=== PATIENT | female | born 1945 | race Caucasian/White ===

== ENCOUNTER 2017-11-11 10:10 | Outpatient (CLI) | payer MEDICARE | END 2017-11-11 10:11 | disposition home or self-care (01) | LOC: BICMAMMO 10:10 | PROVIDERS: ATTEND Physician Assistant | DX: Z12.31 Encounter for screening mammogram for malignant neoplasm of breast (principal); Z80.3 Family history of malignant neoplasm of breast | CPT/HCPCS: 77063; 77067 ==

== ENCOUNTER 2018-02-17 11:52 | Outpatient (CLI) | payer MEDICARE ==
--- NOTE | 2018-02-17 15:07 | MRI ---
NONCONTRAST MRI CERVICAL SPINE: DATE: 02/17/18. HISTORY: Stenosis with critical nerve compression. The patient complains of neck pain that radiates down into left shoulder. The symptoms have been present for 2.5 years. COMPARISON: 01/01/16. FINDINGS: There is volume loss involving the visualized cerebral and cerebellar hemispheres. Cervicomedullary junction demonstrates a normal MRI appearance. There are degenerative changes seen at the articulation of the odontoid with anterior arch of C1 unchanged from prior exam. Mild end plate degenerative changes are seen at the C5-6 and C6-7 levels, but there is otherwise norm al signal intensity in the bone marrow. C2-3 level: There is no disk bulge or disk herniation. Central spinal canal and neural foramina are patent. C3-4 level: There are facet degenerative changes on the left resulting in mild to moderate left-side d neural foraminal narrowing. The central spinal canal and right neural foramen are patent. C4-5 level: There is a broad-based disk-osteophyte complex with uncinate process hypertrophy. There is prominent left-sided facet hypertrophic changes noted. There is mild narrowing of the central sp inal canal with effacement of the ventral subarachnoid space. Right neural foramen is patent, but th ere is mild left-sided neural foraminal narrowing. There is trace anterolisthesis of C4 on C5 also p resent on the prior exam. C5-6 level: There is loss of intervertebral disk height. There is a broad-based disk-osteophyte com plex again present similar to the prior exam. This results in mild narrowing of the central spinal c anal with slight flattening of the anterior aspect of the spinal cord, but there is normal signal int ensity in the spinal cord. There is mild right and moderate to severe left-sided neural foraminal na rrowing. C6-7 level: There is loss of intervertebral disk height. There is a mild disk-osteophyte complex an d facet hypertrophic changes. There is minimal effacement of the ventral subarachnoid space. There is minimal bilateral neural foramen present. C7-T1 level: There is no disk bulge or disk herniation. Central spinal canal and neural foramina ar e patent. IMPRESSION: Overall stable degenerative changes involving the cervical spine with findings greatest at C4-5 and C 5-6 levels. POS: [facility]
--- NOTE | 2018-02-17 15:19 | MRI ---
LEFT WRIST MRI WITHOUT IV CONTRAST: HISTORY: A 72-year-old female with a history of TFC tear and ECUC tear/tendinitis. Swelling for 6 weeks and p ain without acute injury. FINDINGS: Multiplanar, multisequence MRI examination of the left wrist is performed. There is some indistincti on of the central triangular fibrocartilage disk with some fluid within the distal radial ulnar joint , evidence for a central perforation. There is some fluid density noted medial to the extensor carpi ulnaris tendon sheath. The sub sheath is somewhat indistinct but does not appear overtly torn. No evidence for abnormal increased signal within the tendon itself. Minimal fluid density between the s ub sheath and the overlying extensor retinaculum. Arthrosis changes of the triscaphe joint with some minimal abnormal marrow signal within the scaphoid with some subchondral cystic changes as well as a small dorsally located synovial cyst in close proximity. Several other small subchondral cystic elkin nges are noted within the carpal bones. IMPRESSION: Evidence for a small central perforation of the triangular fibrocartilage complex with some fluid in the distal radial ulnar joint. Some fluid extending medial to the extensor carpi ulnaris sub sheath between the sub sheath and the extensor retinaculum probably related to some tenosynovitis. No evide nce for overt ECU tendon tear or significant focal tendinopathy or dislocation of the ECU tendon. Ar throsis changes of the wrist including the trapezium, 1st metacarpal joint, and the triscaphe region. POS: [facility]
== END 2018-02-17 11:53 | disposition home or self-care (01) ==
LOC: SCSMRI 11:52
PROVIDERS: ATTEND Orthopaedic Surgery Hand Surgery
DX: S63.592A Other specified sprain of left wrist, initial encounter (principal); M48.02 Spinal stenosis, cervical region; M19.032 Primary osteoarthritis, left wrist; M19.042 Primary osteoarthritis, left hand; M47.892 Other spondylosis, cervical region
CPT/HCPCS: 72141

== ENCOUNTER 2018-02-24 08:38 | Outpatient (CLI) | payer MEDICARE ==
--- NOTE | 2018-02-24 10:06 | RAD ---
CHEST 2 VIEWS: HISTORY: Preop. COMPARISON: . FINDINGS: Cardiac silhouette and pulmonary vasculature are unremarkable. Mediastinum midline. No confluent ai rspace consolidation, pneumothorax, or pleural fluid. IMPRESSION: No active cardiopulmonary abnormalities are demonstrated. POS: [facility]
[2018-02-24 10:14] LABS: #Basophils 0.1 thou/uL (0.0-0.2); #Eosinphils 0.2 thou/uL (0.0-0.7); #Lymphocytes 2.2 thou/uL (1.20-3.40); #Monocytes 0.7 thou/uL (0.11-0.59); %Basophils 1.2 % (0.0-1.0); %Eosinophils 2.8 % (0.0-10.0); %Lymphocytes 35.7 % (21.0-51.0); %Neutrophils 49.3 % (42.0-75.0); Mean Corpuscular HGB CONC 35.5 g/dL (32.0-36.0); Mean Corpuscular Hemoglobin 32.3 pg (27.0-31.0); Mean Platelet Volume 7.7 fL (7.4-10.4); Platelet Count 231 thou/uL (130-400); RBC Distribution Width 12.3 % (11.5-14.5); Red Blood Cell (RBC) Count 4.34 mill/uL (4.20-5.40); White Blood Cell (WBC) Count 6.1 thou/uL (4.8-10.8)
[2018-02-24 10:31] LABS: Anion Gap 13 mmol/L (10-20); BUN (Urea Nitrogen) 26 mg/dL (9.8-20.1); Calc. Creatinine Clearance 0 mL/min (70-130); Calcium 10.3 mg/dL (7.8-10.44); Carbon Dioxide 25 mmol/L (23-31); Chloride 105 mmol/L (98-107); Estimated GFR-MDRD 57; Glucose 116 mg/dL (80-115); Potassium 3.6 mmol/L (3.5-5.1); Sodium 139 mmol/L (136-145)
== END 2018-02-24 08:39 | disposition home or self-care (01) ==
LOC: LABBT 08:38
PROVIDERS: ATTEND Orthopaedic Surgery Hand Surgery
DX: Z01.818 Encounter for other preprocedural examination (principal); M19.031 Primary osteoarthritis, right wrist
CPT/HCPCS: 71046; 80048; 85025; 93005; 93010

== ENCOUNTER 2018-02-28 09:38 | Observation (INO) | payer MEDICARE ==
[2018-02-28] MEDS ORDERED: Midazolam HCl 2 mg/2 ml Vial ONE ×2 (10:30→12:35)
[2018-02-28] MEDS ORDERED: Fentanyl 100 MCG/2 ML VIAL ONE ×2 (10:30→12:35)
[2018-02-28] MEDS ORDERED: CEFAZOLIN/Water 2 GM/20 ML SYRINGE ONE (10:41)
[2018-02-28] MEDS ORDERED: Promethazine HCl 25 MG/ML VIAL IM PRN ×2 (11:33→17:08)
[2018-02-28] MEDS ORDERED: Ketorolac Tromethamine 30 MG/ML VIAL IVP PRN (11:33)
[2018-02-28] MEDS ORDERED: Ondansetron HCl/PF 4 MG/2 ML Vial IVP PRN (11:33)
[2018-02-28] MEDS ORDERED: traMADol HCl 50 MG TAB PO PRN (11:33)
[2018-02-28] MEDS ORDERED: Zolpidem Tartrate 5 MG TAB PO PRN (11:33)
[2018-02-28] MEDS ORDERED: Ropivacaine HCl/PF 1,100 MG in Sodium Chloride 0.9% 440 ML NERVE BLCK SCH (11:33)
[2018-02-28] MEDS ORDERED: Bupivacaine PF 0.5% 30 ML VIAL ONE (12:28)
[2018-02-28] MEDS ORDERED: Clindamycin/D5W 600 mg/50 ml Premix Bag ONE (12:28)
[2018-02-28] MEDS ORDERED: Thrombin 5000 UNITS/5 ML VIAL ONE (12:29)
[2018-02-28] MEDS ORDERED: Bacitracin Zinc Ointment 30 gm TUBE ONE (12:29)
[2018-02-28] MEDS ORDERED: Sodium Chloride 0.9% 10 ML ONE (12:29)
[2018-02-28] MEDS ORDERED: Morphine 10 MG/ML VIAL ONE (12:42)
[2018-02-28] MEDS ORDERED: Bupivacaine 0.25% HCL 30 ML VIAL ONE (13:03)
[2018-02-28] MEDS ORDERED: Bupivacaine HCl 0.5%/Epinephrine 1:200,000/PF 30 ml Vial ONE (13:03)
[2018-02-28] MEDS ORDERED: Lidocaine 1% PF 5 ML VIAL ONE (13:15)
[2018-02-28] MEDS ORDERED: Dexamethasone 20 MG/5 ML VIAL ONE (13:15)
[2018-02-28] MEDS ORDERED: PROPOFOL 200 MG/20 ML VIAL ONE (13:15)
[2018-02-28] MEDS ORDERED: Ketorolac Tromethamine 30 MG/ML VIAL ONE (13:15)
[2018-02-28] MEDS ORDERED: Ondansetron HCl/PF 4 MG/2 ML Vial ONE (13:15)
[2018-02-28] MEDS ORDERED: Morphine 4 MG/ML VIAL ONE ×2 (17:06→17:21)
[2018-02-28] MEDS ORDERED: HYDROcodone/Acetaminophen 5/325 mg Tablet PO PRN (17:08)
[2018-02-28] MEDS ORDERED: TETANUS AND DIPHTHERIA TOX/PF 0.5 ML DISP.SYRIN IM SCH (17:15)
[2018-02-28] MEDS ORDERED: PHARMACY TO DOSE ANTIBIOTICS FS PRN (17:15)
[2018-02-28] MEDS: Ketorolac Tromethamine 30 MG/ML VIAL IVP SCH (18:01)
[2018-02-28 18:24] VITALS: BMI 33.1
[2018-02-28] MEDS: Aspirin 81 mg Enteric Coated Tablet PO SCH (21:38)
--- NOTE | 2018-02-28 22:47 | RAD ---
RADIOGRAPH RIGHT WRIST 5 VIEWS: 02/28/18 Attention [place] in billing: This is a 5 view study. HISTORY: 72 year old female with chronic wrist pain. COMPARISON: No prior wrist imaging studies are available. FINDINGS: A total of five fluoroscopic spot images obtained with C-arm in the OR. Initial image demonstrates wi dening of the scapholunate interval suggestive of tear of scapholunate ligament. Subsequent image dem onstrates tissue retractors from proximal approach, exposing the carpal bones, and large air density in place of the now absent scaphoid bone. Next images demonstrate tissue retractors from more distal approach at the wrist, and interval placement of a K-wire, and four partially threaded screws which o verlie multiple carpal bones, including capitate, hamate, scaphoid, and triquetrum. In the final imag e, the tissue retractors and K-wire have been removed, but the screws remain. IMPRESSION: 1. Evidence for scapholunate ligament tear on the first image. 2. Ongoing scaphoidectomy. 3. Ongoing arthrodesis of multiple carpal bones. POS: [facility]
[2018-03-01] MEDS: Ketorolac Tromethamine 30 MG/ML VIAL IVP SCH ×2 (00:21→05:26)
[2018-03-01] MEDS: traMADol HCl 50 MG TAB PO PRN ×2 (00:23→08:25)
[2018-03-01] MEDS ORDERED: Vancomycin HCl 750 MG in Sodium Chloride 0.9% 250 ML 250 ML IVPB SCH (01:00)
[2018-03-01] MEDS: Aspirin 81 mg Enteric Coated Tablet PO SCH (08:23)
[2018-03-01] MEDS ORDERED: Vancomycin HCl 1 GM in Premix Bag 1 BAG IVPB SCH (09:00)
[2018-03-01 09:05] VITALS: BP 114/71; TEMP 98.7
--- NOTE | 2018-03-02 08:35 | OP ---
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 FINDINGS: 1. Nearly 70% capitolunate erosion with very hard inebriated bone here and at the radioscaphoid joint . 2. There was a complete scapholunate ligament tear with dorsal intercalated instability. PROCEDURES PERFORMED: 1. Excision of scaphoid. 2. Four-corner arthrodesis with major bone graft using some scaphoid bone and 15 mL of cancellous ch ips. 3. C-arm supervision, 2 hours. SPECIMEN REMOVED: Scaphoid. TOURNIQUET TIME: 127 minutes. Findings as listed above. INDICATIONS: ST-T osteoarthritis with pain and a very wide 1-cm scapholunate interval and dorsal int ercalated instability with SLAC wrist advanced changes. DESCRIPTION OF PROCEDURE: After successful general endotracheal anesthesia, the limb was prepped and draped. We then outlined a zigzag incision after the timeout was done. The tourniquet was inflated to 250 mmHg pressure after exsanguination of limb. Carried incision through skin and subcutaneous tissue identified the superficial ulna and superficial radial nerve branches protected them now throughout the procedure. We then opened the retinaculum i n a zigzag pattern, and through the floor of the fourth dorsal compartment, did a posterior interosse ous nerve neurectomy. We then made a rhomboid shaped capsular flap leaving 3 mm of rim over the radi us for later closure and exposed the entire carpus. It was here that we found the findings of the ra dioscaphoid and capitolunate joint erosion as described above. We then identified the completely torn scapholunate ligament and entered it obliquely and going radia lly with a 0.062 threaded K-wire. We used this as joystick to help gently remove the scaphoid. Once this was done, the scaphoid was and we only had a small amount of good bone. We then began so me systematic curettage and rongeur as well as small amount of burring to achieve a soft cancellous b one surface at the capitate surface of the lunate, lunate surface of the capitate, and the entire fou r corner region. Once this was done, we then placed a small amount of the scaphoid bone into the cap itolunate and the mid carpal joint, we then placed the remaining portion in the other joints to inclu de the lunate or triquetral and the captiohamate. We then pinned him in situ, and next to this, we t hen placed in each joint cannulated the 3-0 Synthes screws. There was excellent apposition, compress ion of the bone graft mass. No gross motion seen between any bones and then we released the tourniqu et. It must be noted that a separate more ulnar incision was made to place the capitohamate and triq uetrum to lunate screw. Tourniquet was deflated. Hemostasis obtained. The extensor carpi ulnaris t o retinaculum was closed with an interrupted 3-0 Monocryl undyed. #1 Ethibond was used in a figure-o f-eight pattern and interrupted to close the capsular flap. The retinacular repair with 2-0 Vicryl u ndyed. This was in a [id number] interrupted pattern. We then closed the subcutaneous tissue wi th a running 4-0 Monocryl and then the skin approximated with interrupted 4-0 nylon in the mattress p attern. The patient left the operating room without evidence of anesthetic or operative complication . Splint was applied. It must be noted that the patient did have a block given preop, which had exc ellent but no at the end of procedure.
== END 2018-03-01 09:20 | disposition home or self-care (01) ==
LOC: SDC 09:38 → SURG B 18:15
PROVIDERS: ADMIT Orthopaedic Surgery Hand Surgery; ATTEND Orthopaedic Surgery Hand Surgery
PROC: 0RGN07Z Fusion of Right Wrist Joint with Autologous Tissue Substitute, Open Approach (ICD-10-PCS; principal; 2018-02-28)
DX: M19.031 Primary osteoarthritis, right wrist (principal); M19.032 Primary osteoarthritis, left wrist; M18.0 Bilateral primary osteoarthritis of first carpometacarpal joints; S63.511A Sprain of carpal joint of right wrist, initial encounter; M85.831 Other specified disorders of bone density and structure, right forearm; I10 Essential (primary) hypertension; J45.909 Unspecified asthma, uncomplicated; E78.00 Pure hypercholesterolemia, unspecified; K21.9 Gastro-esophageal reflux disease without esophagitis; G47.00 Insomnia, unspecified; M48.02 Spinal stenosis, cervical region; M19.019 Primary osteoarthritis, unspecified shoulder; Z88.0 Allergy status to penicillin; Z88.5 Allergy status to narcotic agent; Z88.8 Allergy status to other drugs, medicaments and biological substances; Z79.899 Other long term (current) drug therapy
CPT/HCPCS: 25825; 73110; 76001; 96374 ×2; 96375; 96376; C1713; G0378; A4216; J0670; J1100; J1885; J2001; J2250; J2270; J2405; J2704; J3010; J3370; J3490; J7050; S0020

== ENCOUNTER 2018-05-25 11:57 | Outpatient (CLI) | payer MEDICARE | END 2018-05-25 11:58 | disposition home or self-care (01) | LOC: BICMRI 11:57 | PROVIDERS: ATTEND Neurological Surgery | DX: M54.16 Radiculopathy, lumbar region (principal); M51.24 Other intervertebral disc displacement, thoracic region | CPT/HCPCS: 72148 ==

== ENCOUNTER 2018-06-13 10:32 | Outpatient (CLI) | payer OTHER ==
--- NOTE | 2018-06-13 13:33 | MRI ---
MRI LUMBAR SPINE WITHOUT CONTRAST: History: Lumbar radiculopathy. Comparison: 05-25-18 Technique: MRI of the lumbar spine is performed without intravenous gadolinium administration. Multis equential, multiplanar imaging was performed. FINDINGS: Stable mild heterogenicity of marrow signal intensity of the lumbar vertebrae. No fracture. No signif icant signal intensity to suggest edema or ligamentous injury. Symmetric signal intensity of the psoas muscles. Appropriate signal intensity of the visualizes solid organs. Conus medullaris terminates at the inferior aspect of L1. T11-12: Stable left paracentral disc extrusion. This extrusion measures 9 mm mediolateral x 6 mm ante roposterior x 9 mm craniocaudal (previously measuring 8 x 11 x 8 mm). There is mass effect upon the l eft thecal sac/left radicular zone. Stable central canal stenosis. Moderate right and left foraminal narrowing. T12-L1: Adequate disc hydration. No significant central canal stenosis. Foramina are patent. L1-2: Adequate disc hydration. No significant central canal stenosis. Foramina are patent. L2-3: Adequate disc hydration. No significant central canal stenosis. Foramina are patent. L3-4: Small amount of fluid in both facet joints. Mild facet hypertrophy. No significant posterior di sc abnormality. No significant canal stenosis. Neural foramina are patent. L4-5: Stable moderate loss of disc height loss. No significant posterior disc abnormality. No signifi cant central canal stenosis. Right neural foramen is mildly narrowed. Mild left foraminal narrowing. There is fluid in both facet joints. L5-S1: No significant central canal stenosis. Neural foramina are patent. There is bilateral facet hy pertrophy with fluid in both facet joints. IMPRESSION: 1. Stable degenerative change of the lumbar spine. 2. Stable disc extrusion at T12-L1. POS: [facility]
== END 2018-06-13 10:33 | disposition home or self-care (01) ==
LOC: TBSIIMAG 10:32
PROVIDERS: ATTEND Physician Assistant
DX: M47.26 Other spondylosis with radiculopathy, lumbar region (principal); M51.15 Intervertebral disc disorders with radiculopathy, thoracolumbar region
CPT/HCPCS: 72148

== ENCOUNTER 2018-06-30 08:44 | Outpatient (CLI) | payer MEDICARE ==
--- NOTE | 2018-06-30 10:58 | MRI ---
MRI THORACIC SPINE WIHTOUT CONTRAST: HISTORY: Chronic upper back pain x many years. COMPARISON: 01/01/2016. TECHNIQUE: MRI thoracic spine is performed without contrast. Multisequential, multiplanar imaging is performed. FINDINGS: Stable vertebral body height throughout the thoracic spine with mild loss of vertebral body height in the mid thoracic spine, chronic. No STIR hyperintensity to suggest edema. There is stable heterogen eous signal intensity of the thoracic vertebrae with a stable T1 hypointense, T2 hypointense lesion a t T7 with subtle STIR hyperintensity. This lesion is unchanged for over 2 years. Visualized mediastinum, lung parenchyma, and solid organs are unremarkable. Conus medullaris termina zainab at the mid aspect of T12. The thoracic cord has a normal size and signal intensity. No hyperint ensity or cord expansion. T1-T2 through T2-T3: No significant central canal stenosis. Foramen are patent. T3-T4: Right paracentral disk bulge that deforms the thecal sac. Mild stenosis. T4-T5: Left and right paracentral disk bulge and deformity of the thecal sac. Mild central canal st enosis. T5-T6 AND T6-T7: Mild central canal stenosis due to left and right paracentral disk bulges. T7-T8: Moderate central canal stenosis and deformity of the thecal sac secondary to a broad-based di sk bulge. The ventral cord is also deformed. T8-T9: Mild central canal stenosis through a central disk bulge. T9-T10: Unremarkable. T10-T11: Severe central canal stenosis secondary to an extradural focus causing mass effect upon the left aspect of the thecal sac measuring 1.1 x 0.9 cm. Sequestered disk fragment is favored. There is no corresponding lesion on the most recent MRI. T11-T12: No significant central canal stenosis or foraminal narrowing. IMPRESSION: Abnormal extradural lesion in the anterior left aspect of the central spinal canal at T10-T11 likely representing a sequestered disk fragment. However, complete characterization cannot be performed due to lack of contrast. Postcontrast imaging is recommended to exclude other etiologies such as mening ioma. CODE T POS: [facility]
== END 2018-06-30 08:45 | disposition home or self-care (01) ==
LOC: SCSMRI 08:44
PROVIDERS: ATTEND Neurological Surgery
DX: M54.6 Pain in thoracic spine (principal); R93.7 Abnormal findings on diagnostic imaging of other parts of musculoskeletal system
CPT/HCPCS: 72146

== ENCOUNTER 2018-07-12 07:18 | Day surgery (SDC) | payer MEDICARE ==
[2018-07-11 11:51] VITALS: BMI 34.7
--- NOTE | 2018-07-11 18:21 | HP ---
HISTORY OF PRESENT ILLNESS: Ms. Cho is a 73-year-old woman known to us for several evaluation s with her for various issues. She reports today with her own problem being severe thoracic back pain in the middle to lower thoracic spine. She has had multiple interventions on therapy, medi cations, and several injections with Dr. Mills. All these do help. The pain always returned, it has gotten to a point now where efficacy diminished and she is in quite a bit of pain on a daily bas is. She move forward with surgery. She does have an MRI from [facility] that reveals large disk her niation at T10 causing severe central canal stenosis, though I explain her symptoms well. PAST MEDICAL HISTORY: Significant for hypertension, asthma, seasonal allergies, hypercholesterolemia . CURRENT MEDICATIONS: Omeprazole, atenolol, triamterene, hydrochlorothiazide, montelukast, Cymbalta, Premarin, pravastatin, testosterone, ProAir inhaler. ALLERGIES: ALBUTEROL unit depressions, PENICILLIN, DEMEROL, CODEINE with a wide variety of adverse e ffect. PAST SURGICAL HISTORY: Hysterectomy, neuroma resection in both feet, cholecystectomy, heart catheter ization, bilateral cataract surgeries, left shoulder operation, and wrist fusion. PHYSICAL EXAMINATION: The patient is alert and oriented x3. Gait is severely antalgic and slow. ASSESSMENT: Thoracic stenosis. PLAN: Dr. Baker met with the patient, reviewed imaging and advocated for a left T10 diskectomy. He explained to the patient the risks, benefits, and alternatives to the procedure. The patient express ed understanding and ready for surgery as discussed. I believe the patient is mentally competent and capable of making medical decisions for herself. We will move forward with surgery as planned.
[2018-07-12] MEDS ORDERED: Bupivacaine HCl 0.5%/Epinephrine 1:200,000/PF 30 ml Vial ONE (08:01)
[2018-07-12] MEDS ORDERED: Thrombin 5000 UNITS/5 ML VIAL ONE (08:01)
[2018-07-12] MEDS ORDERED: Levofloxacin 500 mg/D5W 100 ml Premix Bag ONE (08:20)
[2018-07-12] MEDS ORDERED: Clindamycin/D5W 900 mg/50 ml Premix Bag ONE (08:20)
[2018-07-12] MEDS ORDERED: Fentanyl 100 MCG/2 ML VIAL ONE (08:42)
[2018-07-12 08:54] LABS: Anion Gap 12 mmol/L (10-20); BUN (Urea Nitrogen) 23 mg/dL (9.8-20.1); Calc. Creatinine Clearance 73 mL/min (70-130); Calcium 9.5 mg/dL (7.8-10.44); Carbon Dioxide 26 mmol/L (23-31); Chloride 106 mmol/L (98-107); Estimated GFR-MDRD 57; Glucose 82 mg/dL (83-110); Potassium 5.7 mmol/L (3.5-5.1); Sodium 138 mmol/L (136-145)
--- NOTE | 2018-07-12 11:43 | OP ---
SURGEON: Go Baker M.D. [employer] F[employer]IES: Deni Carlos PA-C INDICATION: Pain. PREOPERATIVE DIAGNOSIS: Thoracic herniated disk with associated spinal canal stenosis and radiculopathy. PROCEDURE: Left T10 hemilaminectomy, medial facetectomy, and diskectomy. ANESTHESIA: General. TECHNIQUE: The patient was brought to the operating room and placed under general anesthesia. She was flipped from a supine to prone position on the operating room table. A linear incision was planned over the T10 segment. This was counted from beneath upward. The patient was noted to have 11 ribs as confirmed on MRI, x-ray, and CT. High-speed cutting drill bit as well as 1 and 2 mm Kerrisons were used to perform a laminectomy along T10 on the left side. Laminectomy extended into the facet joint. Disk material was identified in the foramen and an annulotomy was performed in the disk space to remove additional disk material. The wound was irrigated. Hemostasis was maintained throughout. The wound was then closed in anatomic layers and a pressure dressing was applied. There were no known procedural complications. [facility]
[2018-07-12] MEDS ORDERED: PROPOFOL 200 MG/20 ML VIAL ONE (17:32)
[2018-07-12] MEDS ORDERED: Lidocaine 1% PF 5 ML VIAL ONE ×2 (17:32)
[2018-07-12] MEDS ORDERED: Metoclopramide HCl 10 MG/2 ML VIAL ONE (17:32)
[2018-07-12] MEDS ORDERED: Ondansetron PF 4 MG/2 ML Vial ONE (17:32)
[2018-07-12] MEDS ORDERED: Glycopyrrolate 0.2 MG/ML 5 ML SYRINGE ONE (17:32)
[2018-07-12] MEDS ORDERED: Ketorolac Tromethamine 30 MG/ML VIAL ONE (17:32)
== END 2018-07-12 13:05 | disposition home or self-care (01) ==
LOC: SDC 07:18
PROVIDERS: ATTEND Neurological Surgery
PROC: 0RB90ZZ Excision of Thoracic Vertebral Disc, Open Approach (ICD-10-PCS; principal; 2018-07-12)
PROC: 01N80ZZ Release Thoracic Nerve, Open Approach (ICD-10-PCS; 2018-07-12)
DX: M48.04 Spinal stenosis, thoracic region (principal); M51.14 Intervertebral disc disorders with radiculopathy, thoracic region; I10 Essential (primary) hypertension; E78.00 Pure hypercholesterolemia, unspecified; J45.909 Unspecified asthma, uncomplicated; Z79.899 Other long term (current) drug therapy; Z88.0 Allergy status to penicillin; Z88.5 Allergy status to narcotic agent; Z88.8 Allergy status to other drugs, medicaments and biological substances
CPT/HCPCS: 76001; 80048; J0131; J0670; J1885; J1956; J2001; J2405; J2704; J2765; J3010; J3490

== ENCOUNTER 2018-07-27 09:41 | Outpatient (CLI) | payer MEDICARE ==
--- NOTE | 2018-07-27 10:29 | CT ---
CT LUMBAR SPINE: Technique: Multiple axial tomograms were obtained through the lumbar spine with multiplanar reconstru ction. Indication: Low back pain. Lumbar radiculopathy with radiation to the left leg. Comparison: MRI lumbar spine 06-13-18 FINDINGS: The lumbar vertebrae maintain height and alignment. Degenerative disc changes at L4-5 with vacuum phe nomenon and disc space loss. Mild degenerative osteophytes from the lumbar vertebrae. There is a broad based disc protrusion at T11 and T12 which was noted on the recent MRI. T12-L1: No significant disc bulge or abnormality. L1-2: No significant disc bulge or central canal stenosis. L2-3: Mild disc bulge flattens the thecal sac. The disc bulge shows asymmetric extension to the left with disc osteophyte complex projecting to the left with facet hypertrophy. Mild to moderate central canal stenosis. L3-4: Mild diffuse disc bulge flattens the thecal sac. Facet and ligamentous hypertrophy is more prom inent. Moderate to severe central canal stenosis. L4-5: Degenerative disc changes with vacuum phenomenon in the disc space. Disc bulge flattens the the will sac. Facet hypertrophy. Moderate central canal stenosis. L5-S1: Broad based disc bulge. Prominent facet hypertrophy. Moderate central canal stenosis. Bilatera l foraminal encroachment due to diffuse disc bulge and facet hypertrophy. IMPRESSION: Multilevel degenerative disc change as described above with central canal stenosis as described. POS: [facility]
== END 2018-07-27 09:42 | disposition home or self-care (01) ==
LOC: TBSIIMAG 09:41
PROVIDERS: ATTEND Neurological Surgery
DX: M51.16 Intervertebral disc disorders with radiculopathy, lumbar region (principal); M48.061 Spinal stenosis, lumbar region without neurogenic claudication
CPT/HCPCS: 72131

== ENCOUNTER 2018-09-20 09:06 | Outpatient (CLI) | payer MEDICARE ==
--- NOTE | 2018-09-20 12:43 | CT ---
CT OF THE THORACIC SPINE: Date: 09/20/18 COMPARISON: 03/25/16. HISTORY: Thoracic spine surgery in June 2018, pain between shoulder blades. FINDINGS: Axial CT imaging at 3 mm intervals through the thoracic spine with coronal and sagittal reformatted i maging. FINDINGS: Imaged lung parenchyma grossly unremarkable. There is prominent degenerative change at C6-7 and C7-T1, incompletely assessed on this exam. Within the thoracic spine, there is no anterolisthesis or retrolisthesis noted. There is mild multilevel anterior wedging of T8, T9, and T10, similar when compared to prior imaging. There is no acute osseous abnormality identified on this examination. Evaluation for central canal and/or neural foraminal stenosis is limited on routine CT exam. On the b asis of an osseous abnormality, there is no significant central canal stenosis within the thoracic sp ine. There is disc space narrowing with anterior osteophyte formation from T5-6 through T11-12. There are vacuum discs noted anteriorly at T7-8, T9-10, and T11-12. No worrisome lytic or blastic bone lesion is noted. Coronal imaging demonstrates a mild degree of levoscoliosis of the upper thoracic spine. IMPRESSION: Multilevel thoracic spine degenerative change as described above. No acute fracture or evidence of di slocation is seen. If there are radicular symptoms, MRI is suggested. POS: [facility]
== END 2018-09-20 09:07 | disposition home or self-care (01) ==
LOC: TBSIIMAG 09:06
PROVIDERS: ATTEND Neurological Surgery
DX: M54.6 Pain in thoracic spine (principal); M47.814 Spondylosis without myelopathy or radiculopathy, thoracic region
CPT/HCPCS: 72128

== ENCOUNTER 2018-10-11 10:23 | Outpatient (CLI) | payer MEDICARE ==
--- NOTE | 2018-10-11 11:07 | RAD ---
CHEST TWO VIEWS: HISTORY: Dyspnea. COMPARISON: 02/24/2018 FINDINGS: The lungs remain clear. No evidence of vascular congestion. Heart size is upper normal and stable. Degenerative spine changes appear stable. A left shoulder prosthesis has been placed since the prio r exam. IMPRESSION: No acute finding or significant interval change. POS: [facility]
== END 2018-10-11 10:24 | disposition home or self-care (01) ==
LOC: RAD 10:23
PROVIDERS: ATTEND Internal Medicine
DX: R06.00 Dyspnea, unspecified (principal)
CPT/HCPCS: 71046

== ENCOUNTER 2018-10-13 05:49 | Day surgery (SDC) | payer MEDICARE ==
[2018-10-12 13:54] VITALS: BMI 34.7
--- NOTE | 2018-10-12 14:02 | HP ---
HISTORY OF PRESENT ILLNESS: Ms. Cho is a 73-year-old woman known to us for previous decompression of both the lumbar and thoracic spines, who presents now with significant bilateral interscapular pain. She has a new MRI revealing bilateral foraminal stenosis at C3-C4 and C4-C5 that would likely fit this very well. She has exhausted what she feels to be her conservative treatment methods including injection therapy and hopes to move forward with surgery at this time. PAST MEDICAL HISTORY: Hypertension, asthma, seasonal allergies, and hypercholesterolemia. CURRENT MEDICATIONS: 1. Omeprazole. 2. Atenolol. 3. Triamterene. 4. Hydrochlorothiazide. 5. Montelukast. 6. Cymbalta. 7. Premarin. 8. Pravastatin. 9. Testosterone. 10. ProAir. ALLERGIES: TO ALBUTEROL, PENICILLIN, DEMEROL, AND CODEINE. PAST SURGICAL HISTORY: Hysterectomy; neuroma in both feet, resected; cholecystectomy; heart catheterization; cataract surgeries, bilateral; and left shoulder operation; wrist fusion. PHYSICAL EXAMINATION: GENERAL: The patient is alert and oriented x3. MUSCULOSKELETAL: Gait is antalgic and slowed. Cervical range of motion is limited in the lateral rotation. ASSESSMENT: Cervical radiculopathy. PLAN: Dr. Baker met with the patient, reviewed imaging, advocated for C3-C5 anterior cervical diskectomy and fusion. He explained to the patient the risks, benefits, and alternatives to the procedure. The patient expressed understanding and elected to move forward with surgery as discussed. I do believe the patient is medically competent and capable of making medical decisions for herself. We will move forward with surgery as planned. Job ID: [id number]
[2018-10-13 07:05] LABS: Anion Gap 15 mmol/L (10-20); BUN (Urea Nitrogen) 25 mg/dL (9.8-20.1); Calc. Creatinine Clearance 82 mL/min (70-130); Calcium 9.6 mg/dL (7.8-10.44); Carbon Dioxide 18 mmol/L (23-31); Chloride 106 mmol/L (98-107); Estimated GFR-MDRD 65; Glucose 93 mg/dL (83-110); Potassium 4.3 mmol/L (3.5-5.1); Sodium 135 mmol/L (136-145)
[2018-10-13] MEDS ORDERED: Levofloxacin 500 mg/D5W 100 ml Premix Bag ONE (07:23)
[2018-10-13] MEDS ORDERED: Clindamycin/D5W 900 mg/50 ml Premix Bag ONE (07:24)
[2018-10-13] MEDS ORDERED: Fentanyl 250 MCG/5 ML VIAL ONE (08:13)
[2018-10-13] MEDS ORDERED: Thrombin 5000 UNITS/5 ML VIAL ONE (08:14)
[2018-10-13] MEDS ORDERED: Sodium Chloride 0.9% 10 ML ONE (08:14)
[2018-10-13] MEDS ORDERED: Fentanyl 100 MCG/2 ML VIAL ONE ×4 (10:06→11:23)
--- NOTE | 2018-10-13 10:32 | OP ---
DATE OF PROCEDURE: 10/13/2018 LEVEL VIAL MARKER: Deni Carlos PA-C INDICATION: Pain. DIAGNOSIS: Cervical radiculopathy. PROCEDURES PERFORMED: Anterior cervical diskectomy and fusion, C3 through C5. ANESTHESIA: General. DESCRIPTION OF PROCEDURE: The patient was brought into the operating room and placed under general anesthesia. She was placed on table in supine position. A transverse incision was planned over the lateral aspect of the neck on the right. After prepping and draping and after preoperative pause, the incision was created. The underlying platysma muscle was identified and incised. A blunt tissue plane anterior to the sternocleidomastoid muscle was used to gain access to the prevertebral space. Self-retaining retractor was then placed in the wound for optimal exposure. After confirming the appropriate level with C-arm fluoroscopy, annulotomy was performed at C3-C4 and C4-C5 disk spaces. All disk material as well as anterior and posterior osteophytes were removed. After decompressing both levels, a 6 mm lordotic PEEK cage was packed with allograft and autograft material were placed within the interbody space. An anterior cervical plate was then fashioned to the front of spine and secured with a total of 6 screws. Midline and lateral structures were inspected and found to be free from significant trauma. The wound was irrigated. Hemostasis was maintained throughout. The wound was then closed in anatomic layers and a pressure dressing was applied. There were no known procedural complications. Job ID: [id number]
[2018-10-13] MEDS ORDERED: Ketorolac Tromethamine 30 MG/ML VIAL ONE (10:45)
[2018-10-13] MEDS ORDERED: Midazolam HCl 2 mg/2 ml Vial ONE (11:26)
[2018-10-13] MEDS ORDERED: HYDROcodone/Acetaminophen 5/325 mg Tablet ONE (13:18)
== END 2018-10-13 14:20 | disposition home or self-care (01) ==
LOC: SDC 05:49
PROVIDERS: ATTEND Neurological Surgery
PROC: 0RG20A0 Fusion of 2 or more Cervical Vertebral Joints with Interbody Fusion Device, Anterior Approach, Anterior Column, Open Approach (ICD-10-PCS; principal; 2018-10-13)
PROC: 0RT30ZZ Resection of Cervical Vertebral Disc, Open Approach (ICD-10-PCS; 2018-10-13)
DX: M54.12 Radiculopathy, cervical region (principal); M48.02 Spinal stenosis, cervical region; J45.909 Unspecified asthma, uncomplicated; I10 Essential (primary) hypertension; E78.00 Pure hypercholesterolemia, unspecified; Z79.1 Long term (current) use of non-steroidal anti-inflammatories (NSAID); Z79.82 Long term (current) use of aspirin; Z79.899 Other long term (current) drug therapy; Z88.0 Allergy status to penicillin; Z88.5 Allergy status to narcotic agent; Z88.8 Allergy status to other drugs, medicaments and biological substances; Z91.048 Other nonmedicinal substance allergy status
CPT/HCPCS: 20930; 20936; 22551; 22552; 22845; 22853 ×2; 76000; 80048; 93005; C1713 ×2; C1776; 36415; 93010; J0131; J1885; J1956; J2250; J3010; J3490

== ENCOUNTER 2018-10-18 13:14 | Outpatient (CLI) | payer MEDICARE | END 2018-10-18 13:15 | disposition home or self-care (01) | LOC: CP 13:14 | PROVIDERS: ATTEND Internal Medicine | DX: R05 Cough (principal); G47.33 Obstructive sleep apnea (adult) (pediatric) | CPT/HCPCS: 94010; 94727 ==

== ENCOUNTER 2018-11-05 20:30 | Outpatient (CLI) | payer MEDICARE | END 2018-11-05 20:31 | disposition home or self-care (01) | LOC: SLEEPLAB 20:30 | PROVIDERS: ATTEND Internal Medicine | DX: G47.33 Obstructive sleep apnea (adult) (pediatric) (principal); R51 Headache; K21.9 Gastro-esophageal reflux disease without esophagitis; R06.83 Snoring; R35.1 Nocturia; I10 Essential (primary) hypertension; G47.00 Insomnia, unspecified; G47.10 Hypersomnia, unspecified; E66.9 Obesity, unspecified; Z68.34 Body mass index [BMI] 34.0-34.9, adult | CPT/HCPCS: 95810 ==

== ENCOUNTER 2018-11-21 09:05 | Outpatient (CLI) | payer MEDICARE ==
--- NOTE | 2018-11-22 15:32 | MMO ---
Bilateral MAMMO Bilat Screen [facility]. CLINICAL HISTORY: Patient is 73 years old and is seen for screening. The patient has the following family history of breast cancer: mother, at age 65. The patient has no personal history of cancer. VIEWS: The views performed were: bilateral craniocaudal with tomosynthesis and bilateral mediolateral oblique with tomosynthesis. FILMS COMPARED: The present examination has been compared to prior imaging studies performed at [facility] on 11/11/2017, at [facility][1] on 09/09/2016, and at [facility] on 08/02/2014 and 09/08/2015. MAMMOGRAM FINDINGS: There are scattered fibroglandular densities. Benign calcifications are noted bilaterally. There are no suspicious masses, calcifications or areas of architectural distortion. IMPRESSION: FINDINGS IN BOTH BREASTS ARE BENIGN. A ROUTINE FOLLOW-UP MAMMOGRAM IN 1 YEAR IS RECOMMENDED. THE RESULTS OF THIS EXAM WERE SENT TO THE PATIENT. ACR BI-RADS Category 2 - Benign finding MAMMOGRAPHY NOTE: 1. A negative mammogram report should not delay a biopsy if a dominant of clinically suspicious mass is present. 2. Approximately 10% to 15% of breast cancers are not detected by mammography. 3. Adenosis and dense breasts may obscure an underlying neoplasm.
== END 2018-11-21 09:06 | disposition home or self-care (01) ==
LOC: BICMAMMO 09:05
PROVIDERS: ATTEND Physician Assistant
DX: Z12.31 Encounter for screening mammogram for malignant neoplasm of breast (principal); Z80.3 Family history of malignant neoplasm of breast
CPT/HCPCS: 77063; 77067

== ENCOUNTER 2018-11-27 10:14 | Outpatient (CLI) | payer MEDICARE ==
--- NOTE | 2018-11-27 14:18 | MRI ---
MRI THORACIC SPINE WITH AND WITHOUT CONTRAST: HISTORY: Upper back pain. TECHNIQUE: Multiplanar, multisequence, pre and post contrast enhanced MR images of the thoracic spine obtained. FINDINGS: The spinal cord is unremarkable with no evidence of cord masses or lesions. There appear to be broad -based central disk protrusions minimally but not significantly compressing the thecal sac, at T8-T9 and at T9-T10. There is a moderate-sized left T11-T12 lateral recess disk protrusion compressing the thecal sac and narrowing the left T11-T12 lateral recess. No significant evidence of neural foramin al encroachment seen. No evidence of acute thoracic spine fracture is seen. Disk spaces are otherwise unremarkable. IMPRESSION: Central disk protrusions at T8-T9 and T9-T10, with left lateral recess disk protrusion at T11-T12. POS: REZA
== END 2018-11-27 10:15 | disposition home or self-care (01) ==
LOC: TBSIIMAG 10:14 → SCSMRI 10:15
PROVIDERS: ATTEND Specialist
DX: M47.24 Other spondylosis with radiculopathy, thoracic region (principal); M51.14 Intervertebral disc disorders with radiculopathy, thoracic region
CPT/HCPCS: 72157; 82565

== ENCOUNTER 2019-05-03 08:45 | Inpatient (IN) | payer MEDICARE ==
--- NOTE | 2019-05-17 08:57 | HP ---
HISTORY OF PRESENT ILLNESS: The patient is a 73-year-old female with history of progressive left hip pain radiating to her knee without injury. She has had progressive symptoms despite restriction of activities. She has not been unable to tolerate NSAIDs because of previous gastric ulcer. Her hip pain is now interfering with day-to-day activities including walking, getting dressed, and sleeping. PAST MEDICAL HISTORY: The patient also has had chronic back problems and has had multiple injections by Dr. Mills without relief of her hip pain. She also has history of hypertension, headaches, COPD. COPD is followed by in the [facility]. She had a normal heart catheterization previously. CURRENT MEDICATIONS: Include, 1. Omeprazole. 2. Calcium. 3. Atenolol. 4. Claritin. 5. Cymbalta. 6. Excedrin. 7. Fish oil. 8. Glucosamine. 9. Magnesium. 10. Melatonin. 11. Tylenol. 12. Triamterene-hydrochlorothiazide. 13. Premarin. 14. Montelukast. 15. Naproxen. 16. Pravastatin. 17. Tramadol. ALLERGIES: SHE IS ALLERGIC TO PENICILLIN, DEMEROL, FUROSEMIDE, DIOVAN, NIFEDIPINE, PROPRANOLOL, ATORVASTATIN, XANAX, GABAPENTIN, ALBUTEROL. PAST SURGICAL HISTORY: She has had previous wrist surgery and reverse shoulder arthroplasty on the left. FAMILY HISTORY: Otherwise unremarkable. SOCIAL HISTORY: Otherwise unremarkable. REVIEW OF SYSTEMS: Otherwise unremarkable. PHYSICAL EXAMINATION: GENERAL: Reveals a healthy elderly female. HEENT: Unremarkable. NECK: Supple. CHEST: Clear. HEART: Regular rate and rhythm. ABDOMEN: Soft, nontender. PELVIC: Deferred. RECTAL: Deferred. BREASTS: Deferred. EXTREMITIES: Pertinent findings related to her right hip. Her leg lengths were equal. There is tenderness in the greater trochanter and anterior hip. There is a decreased range of motion of the right hip and groin pain with internal rotation, which reproduces her pain. NEUROVASCULAR: Intact. Straight leg raising is negative. DIAGNOSTIC STUDIES: X-rays of the pelvis and right hip revealed degenerative narrowing of the right hip, which has progressed from previous x-rays. IMPRESSION: 1. Degenerative arthritis, right hip. 2. History of hypertension. 3. History of chronic obstructive pulmonary disease. PLAN: Right total hip replacement. The nature of the surgery, length of recovery, and potential complications such as infection, loss of motion, incomplete relief, neurovascular injury, thromboembolic phenomena, leg-length discrepancy, possible transfusion, and need for revision have been discussed in detail. Job ID: [id number]
[2019-05-21] MEDS ORDERED: Sodium Chloride 0.9% 100 ML ONE (06:00)
[2019-05-21] MEDS ORDERED: Tranexamic Acid 1,000 MG/10 ML VIAL ONE ×2 (06:00→09:11)
[2019-05-21] MEDS ORDERED: Levofloxacin 500 mg/D5W 100 ml Premix Bag ONE (06:00)
[2019-05-21] MEDS ORDERED: Vancomycin HCl 1.5 GM in Sodium Chloride 0.9% 250 ML 300 ML IVPB SCH ×2 (06:15→18:00)
[2019-05-21] MEDS ORDERED: Fentanyl 100 MCG/2 ML VIAL ONE ×5 (06:26→11:28)
[2019-05-21] MEDS ORDERED: Midazolam HCl 2 mg/2 ml Vial ONE (06:26)
[2019-05-21] MEDS ORDERED: Ropivacaine 0.5% HCl/PF (150 MG/30 ML VIAL) ONE (07:09)
[2019-05-21] MEDS ORDERED: Multivitamin W/ Minerals 1 TAB PO SCH (09:00)
[2019-05-21] MEDS ORDERED: Ferrous Gluconate 324 MG TAB PO SCH (09:00)
[2019-05-21] MEDS ORDERED: Promethazine HCl 25 MG/ML VIAL SLOW IVP PRN ×2 (09:10→09:22)
[2019-05-21] MEDS ORDERED: [UNRECOGNIZED DRUG - OTHER] PO SCH (09:10)
[2019-05-21] MEDS ORDERED: ATENOLOL PO SCH (09:10)
[2019-05-21] MEDS ORDERED: Fentanyl 100 MCG/2 ML VIAL SLOW IVP PRN ×2 (09:10)
[2019-05-21] MEDS ORDERED: TESTOSTERONE TOP SCH (09:10)
[2019-05-21] MEDS ORDERED: PSYLLIUM HUSK PO SCH (09:10)
[2019-05-21] MEDS ORDERED: Non-Formulary Item 1 EACH (Omeprazole [Omeprazole] 40 MG) PO SCH (09:10)
[2019-05-21] MEDS ORDERED: Non-Formulary Item 1 EACH (Loratadine [Claritin] 10 MG) PO SCH (09:10)
[2019-05-21] MEDS ORDERED: diphenhydrAMINE 25 MG CAP PO PRN ×3 (09:10→10:45)
[2019-05-21] MEDS ORDERED: Tranexamic Acid 1,000 MG in Sodium Chloride 0.9% 100 ML IVPB SCH ×2 (09:10→09:15)
[2019-05-21] MEDS ORDERED: LEVALBUTEROL TARTRATE INH PRN (09:10)
[2019-05-21] MEDS ORDERED: Ondansetron PF 4 MG/2 ML Vial IVP PRN ×3 (09:10→10:45)
[2019-05-21] MEDS ORDERED: Non-Formulary Item 1 EACH (Triamterene/Hydrochlorothiazid [Triamterene-Hctz 37.5-25 Mg Cp PO SCH (09:10)
[2019-05-21] MEDS ORDERED: Zolpidem Tartrate 5 MG TAB PO PRN ×3 (09:10→10:45)
[2019-05-21] MEDS ORDERED: FLUTICASONE INH SCH (09:10)
[2019-05-21] MEDS ORDERED: traMADol HCl 50 MG TAB PO PRN ×4 (09:10→10:45)
[2019-05-21] MEDS ORDERED: SALMETEROL INH SCH (09:10)
[2019-05-21] MEDS ORDERED: Acetaminophen 325 MG TAB PO PRN (09:10)
[2019-05-21] MEDS ORDERED: Bupivacaine 0.5% 10 ML VIAL ONE (09:20)
[2019-05-21] MEDS ORDERED: HYDROmorphone 2 MG/ML VIAL SLOW IVP PRN (09:22)
[2019-05-21] MEDS ORDERED: Ondansetron HCl/PF 4 MG/2 ML Vial IVP PRN (09:22)
[2019-05-21] MEDS ORDERED: Promethazine HCl 25 MG/ML VIAL IM PRN ×3 (09:22→10:45)
--- NOTE | 2019-05-21 09:30 | RAD ---
EXAM: 2 views of the right hip HISTORY: Status post right hip arthroplasty COMPARISON: None FINDINGS: 2 views of the right hip shows the patient is status post right hip arthroplasty without pe rihardware lucency or fracture. Air in the soft tissues is from recent surgery. IMPRESSION: No evidence of acute osseous abnormality.
[2019-05-21] MEDS ORDERED: Ketorolac Tromethamine 30 MG/ML VIAL ONE (09:37)
[2019-05-21] MEDS ORDERED: HYDROmorphone 2 MG/ML VIAL ONE (09:43)
[2019-05-21] MEDS ORDERED: Acetaminophen 500 MG TAB PO PRN ×2 (10:00→16:15)
[2019-05-21] MEDS ORDERED: Promethazine HCl 25 MG SUPP PR PRN ×2 (10:00→10:45)
[2019-05-21] MEDS ORDERED: diphenhydrAMINE 50 MG/ML VIAL IM PRN ×2 (10:00→10:45)
[2019-05-21] MEDS ORDERED: Hydrocerin (Eucerin) Cream 120 gm Jar TOP PRN ×2 (10:00→10:45)
[2019-05-21] MEDS ORDERED: diphenhydrAMINE 50 MG/ML VIAL IVP PRN ×2 (10:00→10:45)
[2019-05-21] MEDS ORDERED: Naloxone HCl 0.4 mg/ml Vial IV PRN ×2 (10:00→10:45)
[2019-05-21] MEDS ORDERED: Naloxone HCl 0.4 mg/ml Vial IVP PRN ×2 (10:00→10:45)
[2019-05-21] MEDS ORDERED: Fentanyl 100 MCG/2 ML VIAL EPIDURAL SCH (10:15)
[2019-05-21] MEDS ORDERED: Ketorolac Tromethamine 30 MG/ML VIAL IVP SCH ×3 (10:15→12:00)
[2019-05-21] MEDS ORDERED: Acetaminophen 1,000 MG in Premix Bag 1 BAG IVPB SCH (10:15)
[2019-05-21] MEDS ORDERED: PROVENTIL INHALER 6.7 G (200 INHALATIONS) INH PRN (10:18)
[2019-05-21] MEDS ORDERED: Bupivacaine 0.25% 10 ML VIAL EPIDURAL PRN (10:45)
--- NOTE | 2019-05-21 10:52 | OP ---
DATE OF PROCEDURE: 05/21/2019 BUSINESS INTEGRATION MANAGER: Lisette Mejía PA-C ANESTHESIA: General plus epidural. PREOPERATIVE DIAGNOSIS: Degenerative arthritis, right hip. POSTOPERATIVE DIAGNOSIS: Degenerative arthritis, right hip. PROCEDURE PERFORMED: Right total hip replacement with uncemented Micheline Trident PSL acetabular component 52 mm with X3 polyethylene insert and uncemented Shelby Accolade II femoral stem #5 with 132-degree neck angle and -5 mm neck length, 36 mm metal head. DESCRIPTION OF PROCEDURE: After satisfactory anesthesia was induced in supine position, sequential compression devices were placed on the nonoperative leg throughout the procedure. The patient was then placed in lateral decubitus position. This position held with a hip positioning device. The patient's right hip was then prepped and draped in routine sterile fashion. The hip was approached through a lateral curvilinear incision centered over the greater trochanter, carried down through the subcutaneous tissues and bleeding points were controlled with Bovie cautery. IT band and gluteal fascia were split in line of the skin incision. A direct lateral approach to the hip joint was accomplished by dividing the anterior third of the gluteus medius and minimus tendons with the Bovie cautery and reflecting this as a single flap anteriorly and medially along with the vastus lateralis. Anterior capsulectomy was performed. The hip was dislocated anteriorly. There was marked degenerative arthritis of the hip with areas of exposed bone. The femoral neck was osteotomized with oscillating saw using a trial prosthesis as a guide. The acetabulum was exposed and cleaned of all soft tissue and debris and then reamed in sequence with prior reamers and bleeding subchondral bone to a total of 52 mm. It was felt that a 52 mm PSL outer shell placed in a press-fit fashion. The permanent component was then hammered in position. There was good fit and position of the outer shell and the X3 polyethylene liner was then snapped in position and the proximal femur was exposed. It was opened with a box osteotome and rasped in sequence to accept a #5 Accolade II femoral rasp. Trial reduction with 132 degree neck angle trunnion and a -5 mm 36 mm head gave appropriate size, fit, and stability. The hip was again dislocated. The trial components were removed. The hip was copiously irrigated. The permanent #5 Accolade II femoral stem was then hammered in position and the -5 mm neck length 36 mm metal head was then placed on the trunnion and the hip again reduced and found to be stable. The hip was copiously irrigated with pulsatile lavage. The abductors were repaired with interrupted #2 Vicryl. IT band and gluteal fascia were closed with interrupted #2-0 Vicryl and a running #2 Quill. Subcutaneous tissues were closed with a running 0 Quill suture and the skin closed with running subcuticular 3-0 Monoderm and SurgiSeal skin adhesive. Sterile dressing was applied and the patient turned to supine position and sequential compression devices were applied to her operated leg. She was awakened and taken to the recovery room in stable condition. There were no apparent intraoperative complications. The estimated blood loss was 250 mL. Job ID: [id number]
[2019-05-21] MEDS: Calcium Carbonate 600 MG TAB PO SCH (12:49)
[2019-05-21] MEDS: Aspirin 81 mg Enteric Coated Tablet PO SCH ×2 (12:49→20:14)
[2019-05-21] MEDS: Sodium Chloride 0.9% 1,000 ML IV SCH ×2 (12:50→20:20)
[2019-05-21] MEDS: Ketorolac Tromethamine 30 MG/ML VIAL IVP SCH ×3 (12:51→23:40)
[2019-05-21] MEDS: Ipratropium Bromide 2.5 ml Neb NEB SCH ×2 (13:30→19:57)
[2019-05-21] MEDS ORDERED: Lidocaine 1% PF 5 ML VIAL ONE (13:58)
[2019-05-21] MEDS ORDERED: Rocuronium Bromide 10 MG/ML (10ML VIAL) ONE (13:58)
[2019-05-21] MEDS ORDERED: ePHEDrine 50 MG/ML VIAL ONE (13:58)
[2019-05-21] MEDS ORDERED: PROPOFOL 200 MG/20 ML VIAL ONE (13:58)
[2019-05-21] MEDS ORDERED: Ondansetron PF 4 MG/2 ML Vial ONE (13:58)
[2019-05-21 14:35] VITALS: BMI 34.7
[2019-05-21] MEDS: traMADol HCl 50 MG TAB PO PRN ×2 (16:08→22:06)
[2019-05-21] MEDS ORDERED: Morphine 4 MG/ML VIAL ONE (17:01)
[2019-05-21] MEDS: Morphine 2 MG/ML SYRINGE SLOW IVP PRN ×6 (17:31→23:40)
[2019-05-21] MEDS ORDERED: Mometasone/Formoterol 120 PUFF INHALER INH SCH (18:30)
[2019-05-21] MEDS: Atorvastatin Calcium 10 MG TAB PO SCH (20:14)
[2019-05-21] MEDS: Fish Oil 1,000 MG CAP PO SCH (20:15)
[2019-05-21] MEDS: Montelukast Sodium 10 mg Tablet PO SCH (20:15)
[2019-05-21] MEDS: Famotidine 20 MG TAB PO SCH (20:15)
[2019-05-21] MEDS: Loratadine 10 MG TAB PO SCH (20:15)
[2019-05-21] MEDS: Magnesium Oxide 400 MG TAB PO SCH (20:15)
[2019-05-21] MEDS: Senokot S 8.6-50 MG TAB PO SCH (20:16)
[2019-05-21] MEDS: Metamucil PACK PO SCH (20:16)
[2019-05-21] MEDS: Estrogens, Conjugated 0.3 MG TAB PO SCH (20:17)
[2019-05-21] MEDS ORDERED: Non-Formulary Item 1 EACH (Magnesium Oxide [Magnesium] 400 MG) PO SCH (21:00)
[2019-05-21] MEDS ORDERED: FISH OIL PO SCH (21:00)
[2019-05-21] MEDS ORDERED: GLUCOSAMINE CHONDROITIN PO SCH (21:00)
[2019-05-21] MEDS ORDERED: EPA PO SCH (21:00)
[2019-05-21] MEDS ORDERED: DHA PO SCH (21:00)
[2019-05-21] MEDS ORDERED: OMEGA PO SCH (21:00)
[2019-05-21] MEDS ORDERED: ESTROGENS CONJUGATED 0.45 MG PO SCH (21:00)
[2019-05-21] MEDS ORDERED: Pravastatin Sodium 40 MG TAB PO SCH (21:00)
[2019-05-21] MEDS ORDERED: MELATONIN PO SCH (21:00)
[2019-05-21] MEDS ORDERED: Non-Formulary Item 1 EACH (Tiotropium Bromide [Spiriva Respimat] 2 PUFF) INH SCH (21:00)
[2019-05-21] MEDS ORDERED: ZANTAC PO SCH (21:00)
[2019-05-21] MEDS ORDERED: [UNRECOGNIZED DRUG - OTHER] PO SCH (21:00)
[2019-05-21] MEDS ORDERED: Ipratropium Bromide 2.5 ml Neb NEB PRN (21:25)
[2019-05-21] MEDS ORDERED: Melatonin 3 MG TAB PO PRN (21:27)
[2019-05-21] MEDS ORDERED: Polyethylene Glycol 3350 17 GM Packet PO PRN (21:28)
--- NOTE | 2019-05-21 21:44 | PDOC.HOSPP ---
- Subjective Encounter Date: 05/21/19 Encounter Time: 21:00 Subjective: Patient seen and examined for med mngt. No CP or SOB. Pain controlled. No new complaints. No overnight events - Objective Vital Signs & Weight: Vital Signs (12 hours) Temp Pulse Resp BP Pulse Ox 05/21/19 20:01 95 05/21/19 19:20 99.6 F 80 16 147/71 H 95 05/21/19 13:30 68 15 05/21/19 12:30 98.2 F 67 20 161/82 H 94 L Weight Weight 190 lb Result Diagrams: 05/22/19 04:52 Hospitalist ROS - Review of Systems Respiratory: denies: cough, dry, shortness of breath, hemoptysis, SOB with excertion, pleuritic pain, sputum, wheezing, other Cardiovascular: denies: chest pain, palpitations, orthopnea, paroxysmal noc. dyspnea, edema, light headedness, other - Medication Medications: Active Medications Generic Name Dose Route Start Last Admin Trade Name Freq PRN Reason Stop Dose Admin Aspirin 81 mg 05/21/19 09:00 05/21/19 20:14 Ecotrin PO 81 mg BID FRANDY Administration Atorvastatin Calcium 10 mg 05/21/19 21:00 05/21/19 20:14 Lipitor PO 10 mg HS FRANDY Administration Calcium Carbonate 600 mg 05/21/19 09:00 05/21/19 12:49 Caltrate PO Not Given DAILY FRANDY Duloxetine HCl 20 mg 05/21/19 09:00 05/21/19 20:14 Cymbalta PO 20 mg BID FRANDY Administration Estrogens Conjugated 0.45 mg 05/21/19 21:00 05/21/19 20:17 Premarin PO Not Given HS FRANDY Famotidine 40 mg 05/21/19 21:00 05/21/19 20:15 Pepcid PO 40 mg HS FRANDY Administration Fish Oil 1,000 mg 05/21/19 21:00 05/21/19 20:15 Fish Oil PO 1,000 mg HS FRANDY Administration Sodium Chloride 1,000 mls @ 100 mls/hr 05/21/19 09:10 05/21/19 20:20 Normal Saline 0.9% IV Not Given .Q10H FRANDY Ketorolac Tromethamine 15 mg 05/21/19 12:00 05/21/19 17:35 Toradol IVP 05/23/19 06:01 15 mg Q6HR FRANDY Administration Loratadine 10 mg 05/21/19 21:00 05/21/19 20:15 Claritin PO 10 mg BID FRANDY Administration Magnesium Oxide 400 mg 05/21/19 21:00 05/21/19 20:15 Magnesium Oxide PO 400 mg HS FRANDY Administration Montelukast Sodium 10 mg 05/21/19 21:00 05/21/19 20:15 Singulair PO 10 mg HS FRANDY Administration Morphine Sulfate 2 mg 05/21/19 17:01 05/21/19 20:12 Morphine SLOW IVP 2 mg Q30MIN PRN Administration Pain Psyllium Hydrophilic Mucilloid 1 pk 05/21/19 21:00 05/21/19 20:16 Metamucil PO 1 pk BID FRANDY Administration Senna/Docusate Sodium 2 tab 05/21/19 21:00 05/21/19 20:16 Senokot S PO 2 tab BID FRANDY Administration Tramadol HCl 100 mg 05/21/19 10:45 05/21/19 16:08 Ultram PO 100 mg Q6H PRN Administration Moderate Pain 4-6 - Exam General Appearance: NAD Neck: supple, no JVD Heart: RRR, no gallops Respiratory: CTAB, no rales Gastrointestinal: soft, non-tender, normal bowel sounds Hosp A/P (1) Asthma Code(s): J45.909 - UNSPECIFIED ASTHMA, UNCOMPLICATED Status: Chronic Qualifiers: Asthma severity: mild Asthma persistence: persistent (2) GERD (gastroesophageal reflux disease) Code(s): K21.9 - GASTRO-ESOPHAGEAL REFLUX DISEASE WITHOUT ESOPHAGITIS Status: Chronic (3) Anxiety Code(s): F41.9 - ANXIETY DISORDER, UNSPECIFIED Status: Chronic (4) Obesity (BMI 30.0-34.9) Code(s): E66.9 - OBESITY, UNSPECIFIED Status: Chronic (5) CKD (chronic kidney disease) stage 2, GFR 60-89 ml/min Code(s): N18.2 - CHRONIC KIDNEY DISEASE, STAGE 2 (MILD) Status: Chronic - Plan plan discussed w/ family, PT/OT, incentive spirometry, DVT proph w/SCDs Cont Advair/Spiriva Add PRN Nebs Cont Singuilair Cont Cymbalt Cont PPI Cont Statins Full code. DPOA spouse
[2019-05-22] MEDS: fentaNYL Citrate/PF 500 MCG, Bupivacaine 10 ML in Sodium Chloride 0.9% 80 ML EPIDURAL SCH ×2 (04:23→20:10)
[2019-05-22 05:12] LABS: Mean Corpuscular HGB CONC 35.3 g/dL (32.0-36.0); Mean Corpuscular Hemoglobin 32.1 pg (27.0-31.0); Mean Corpuscular Volume 91.1 fL (78.0-98.0); Mean Platelet Volume 7.6 fL (7.4-10.4); Platelet Count 175 thou/uL (130-400); RBC Distribution Width 13.4 % (11.5-14.5); Red Blood Cell (RBC) Count 3.13 mill/uL (4.20-5.40); White Blood Cell (WBC) Count 8.2 thou/uL (4.8-10.8)
[2019-05-22] MEDS: Sodium Chloride 0.9% 1,000 ML IV SCH ×3 (05:26→22:59)
[2019-05-22] MEDS: Ketorolac Tromethamine 30 MG/ML VIAL IVP SCH ×5 (05:44→23:24)
[2019-05-22] MEDS: Ferrous Gluconate 324 MG TAB PO SCH ×2 (08:18→17:41)
[2019-05-22] MEDS: Aspirin 81 mg Enteric Coated Tablet PO SCH ×2 (08:18→20:11)
[2019-05-22] MEDS: Triamterene/Hydrochlorothiazide 37.5 mg/25 mg Tablet PO SCH (08:18)
[2019-05-22] MEDS: Senokot S 8.6-50 MG TAB PO SCH ×2 (08:19→20:10)
[2019-05-22] MEDS: Calcium Carbonate 600 MG TAB PO SCH (08:19)
[2019-05-22] MEDS: Loratadine 10 MG TAB PO SCH ×2 (08:19→20:11)
[2019-05-22] MEDS: Atenolol 50 MG TAB PO SCH (08:19)
[2019-05-22] MEDS: Metamucil PACK PO SCH ×2 (08:21→20:10)
[2019-05-22] MEDS: Morphine 2 MG/ML SYRINGE SLOW IVP PRN (10:59)
[2019-05-22] MEDS: Multivitamin W/ Minerals 1 TAB PO SCH (11:01)
[2019-05-22] MEDS: Montelukast Sodium 10 mg Tablet PO SCH (20:10)
[2019-05-22] MEDS: Estrogens, Conjugated 0.3 MG TAB PO SCH (20:10)
[2019-05-22] MEDS: Magnesium Oxide 400 MG TAB PO SCH (20:11)
[2019-05-22] MEDS: Atorvastatin Calcium 10 MG TAB PO SCH (20:11)
[2019-05-22] MEDS: Fish Oil 1,000 MG CAP PO SCH (20:11)
[2019-05-22] MEDS: Famotidine 20 MG TAB PO SCH (20:11)
--- NOTE | 2019-05-22 21:43 | PDOC.HOSPP ---
- Subjective Encounter Date: 05/22/19 Encounter Time: 08:35 Subjective: Patient seen and examined for med mngt. No fever/chills or CP. No new complaints. No overnight events - Objective Vital Signs & Weight: Vital Signs (12 hours) Temp Pulse Resp BP Pulse Ox 05/22/19 19:37 98.7 F 80 16 161/71 H 05/22/19 16:21 97.4 F L 83 16 144/73 H 93 L Weight Admit Weight 190 lb Weight 190 lb I&O: 05/21/19 05/22/19 05/23/19 06:59 06:59 06:59 Intake Total 1250 Output Total 550 Balance 700 Result Diagrams: 05/22/19 04:52 Hospitalist ROS - Review of Systems Respiratory: denies: cough, dry, shortness of breath, hemoptysis, SOB with excertion, pleuritic pain, sputum, wheezing, other Cardiovascular: denies: chest pain, palpitations, orthopnea, paroxysmal noc. dyspnea, edema, light headedness, other - Medication Medications: Active Medications Generic Name Dose Route Start Last Admin Trade Name Freq PRN Reason Stop Dose Admin Acetaminophen 1,000 mg 05/21/19 16:15 05/22/19 08:24 Tylenol PO 1,000 mg Q6H PRN Administration Mild-Moderate Pain (1-5) Aspirin 81 mg 05/21/19 09:00 05/22/19 20:11 Ecotrin PO 81 mg BID FRANDY Administration Atenolol 100 mg 05/22/19 09:00 05/22/19 08:19 Tenormin PO 100 mg DAILY FRANDY Administration Atorvastatin Calcium 10 mg 05/21/19 21:00 05/22/19 20:11 Lipitor PO 10 mg HS FRANDY Administration Calcium Carbonate 600 mg 05/21/19 09:00 05/22/19 08:19 Caltrate PO 600 mg DAILY FRANDY Administration Duloxetine HCl 20 mg 05/21/19 09:00 05/22/19 20:11 Cymbalta PO 20 mg BID FRANDY Administration Estrogens Conjugated 0.45 mg 05/21/19 21:00 05/22/19 20:10 Premarin PO 0.45 mg HS FRANDY Administration Famotidine 40 mg 05/21/19 21:00 05/22/19 20:11 Pepcid PO 40 mg HS FRANDY Administration Ferrous Gluconate 324 mg 05/22/19 08:00 05/22/19 17:41 Fergon PO 324 mg BID-WM FRANDY Administration Fish Oil 1,000 mg 05/21/19 21:00 05/22/19 20:11 Fish Oil PO 1,000 mg HS FRANDY Administration Sodium Chloride 1,000 mls @ 100 mls/hr 05/21/19 09:10 05/22/19 18:31 Normal Saline 0.9% IV Not Given .Q10H FRANDY Fentanyl Citrate 500 mcg/ 100 mls @ 6 mls/hr 05/21/19 10:45 05/22/19 20:10 Bupivacaine HCl 10 ml/ Sodium EPIDURAL 100 mls Chloride INF FRANDY Administration Iron/Minerals/Multivitamins 1 tab 05/22/19 09:00 05/22/19 11:01 Theragran M PO 1 tab DAILY FRANDY Administration Ketorolac Tromethamine 15 mg 05/21/19 12:00 05/22/19 17:40 Toradol IVP 05/23/19 06:01 15 mg Q6HR FRANDY Administration Loratadine 10 mg 05/21/19 21:00 05/22/19 20:11 Claritin PO 10 mg BID FRANDY Administration Magnesium Oxide 400 mg 05/21/19 21:00 05/22/19 20:11 Magnesium Oxide PO 400 mg HS FRANDY Administration Montelukast Sodium 10 mg 05/21/19 21:00 05/22/19 20:10 Singulair PO 10 mg HS FRANDY Administration Morphine Sulfate 2 mg 05/21/19 17:01 05/22/19 10:59 Morphine SLOW IVP 2 mg Q30MIN PRN Administration Pain Pantoprazole Sodium 40 mg 05/22/19 09:00 05/22/19 08:19 Protonix PO 40 mg DAILY FRANDY Administration Psyllium Hydrophilic Mucilloid 1 pk 05/21/19 21:00 05/22/19 20:10 Metamucil PO 1 pk BID FRANDY Administration Senna/Docusate Sodium 2 tab 05/21/19 21:00 05/22/19 20:10 Senokot S PO 2 tab BID FRANDY Administration Tramadol HCl 100 mg 05/21/19 10:45 05/21/19 22:06 Ultram PO 100 mg Q6H PRN Administration Moderate Pain 4-6 Triamterene/HCTZ 1 tab 05/22/19 09:00 05/22/19 08:18 Maxzide-25 PO 1 tab QAM FRANDY Administration - Exam General Appearance: NAD Heart: RRR, no rubs Respiratory: CTAB, no rales Gastrointestinal: soft, non-tender, normal bowel sounds Hosp A/P (1) Asthma Code(s): J45.909 - UNSPECIFIED ASTHMA, UNCOMPLICATED Status: Chronic Qualifiers: Asthma severity: mild Asthma persistence: persistent (2) GERD (gastroesophageal reflux disease) Code(s): K21.9 - GASTRO-ESOPHAGEAL REFLUX DISEASE WITHOUT ESOPHAGITIS Status: Chronic (3) Anxiety Code(s): F41.9 - ANXIETY DISORDER, UNSPECIFIED Status: Chronic (4) Obesity (BMI 30.0-34.9) Code(s): E66.9 - OBESITY, UNSPECIFIED Status: Chronic (5) CKD (chronic kidney disease) stage 2, GFR 60-89 ml/min Code(s): N18.2 - CHRONIC KIDNEY DISEASE, STAGE 2 (MILD) Status: Chronic - Plan plan discussed w/ family, PT/OT, respiratory therapy, incentive spirometry, out of bed/ambulate, DVT proph w/SCDs Cont Advair/Spiriva with PRN Nebs/Singuilair Cont Cymbalta/PPI/Statins and other meds as above Will follow PRN
[2019-05-23 04:42] LABS: Hemoglobin 9.7 g/dL (12.0-16.0); Mean Corpuscular HGB CONC 35.3 g/dL (32.0-36.0); Mean Corpuscular Hemoglobin 31.7 pg (27.0-31.0); Mean Corpuscular Volume 89.7 fL (78.0-98.0); Mean Platelet Volume 7.6 fL (7.4-10.4); Platelet Count 164 thou/uL (130-400); RBC Distribution Width 13.1 % (11.5-14.5); Red Blood Cell (RBC) Count 3.07 mill/uL (4.20-5.40); White Blood Cell (WBC) Count 8.8 thou/uL (4.8-10.8)
[2019-05-23] MEDS: Atenolol 50 MG TAB PO SCH (08:00)
[2019-05-23] MEDS: Senokot S 8.6-50 MG TAB PO SCH (08:01)
[2019-05-23] MEDS: Loratadine 10 MG TAB PO SCH (08:01)
[2019-05-23] MEDS: Aspirin 81 mg Enteric Coated Tablet PO SCH (08:01)
[2019-05-23] MEDS: Calcium Carbonate 600 MG TAB PO SCH (08:01)
[2019-05-23] MEDS: Triamterene/Hydrochlorothiazide 37.5 mg/25 mg Tablet PO SCH (08:01)
[2019-05-23] MEDS: Multivitamin W/ Minerals 1 TAB PO SCH (08:02)
[2019-05-23] MEDS: traMADol HCl 50 MG TAB PO PRN (08:02)
[2019-05-23] MEDS: Metamucil PACK PO SCH (08:03)
[2019-05-23] MEDS: Ferrous Gluconate 324 MG TAB PO SCH (08:17)
--- NOTE | 2019-05-23 09:31 | PRG ---
DATE OF SERVICE: 05/22/2019 SUBJECTIVE: Darius is a 73-year-old white female, who is postop day 1 from right total hip arthroplasty. She is doing relatively well. She is able to ambulate 44 feet in the morning. Epidural still in place. OBJECTIVE: VITAL SIGNS: Temperature 99, pulse 90, respiratory rate 16, O2 saturation 93% on room air, and blood pressure is 136/75. GENERAL: She is alert and oriented to person, place, time, and situation. Nonfocal. Grossly responsive and appropriate with examiner. EXTREMITIES: Her incision is clean. No strikethrough. No erythema. She is neurovascularly intact in both lower extremities. LABORATORY DATA: Hemoglobin and hematocrit 10 and 28. IMPRESSION AND PLAN: 1. A 73-year-old female postop day 1, right total hip arthroplasty, doing well. Plan, continue current care. 2. Asymptomatic hemorrhagic anemia. Plan, continue current care. Consider discharge tomorrow. Job ID: [id number]
[2019-05-23 11:50] VITALS: BP 158/80; TEMP 97.5
[2019-05-23] MEDS: Morphine 2 MG/ML SYRINGE SLOW IVP PRN (12:03)
[2019-05-23] MEDS: Sodium Chloride 0.9% 1,000 ML IV SCH (13:56)
== END 2019-05-23 15:24 | disposition home or self-care (01) | DRG 470 ==
LOC: SURG A 05-21 05:30 → SJJU 05-21 12:11
PROVIDERS: ADMIT Orthopaedic Surgery; ATTEND Orthopaedic Surgery
PROC: 0SR90JA Replacement of Right Hip Joint with Synthetic Substitute, Uncemented, Open Approach (ICD-10-PCS; principal; 2019-05-21)
DX: M16.11 Unilateral primary osteoarthritis, right hip (principal); J44.9 Chronic obstructive pulmonary disease, unspecified; Z96.612 Presence of left artificial shoulder joint; E66.9 Obesity, unspecified; K21.9 Gastro-esophageal reflux disease without esophagitis; J45.30 Mild persistent asthma, uncomplicated; N18.2 Chronic kidney disease, stage 2 (mild); F41.9 Anxiety disorder, unspecified; I12.9 Hypertensive chronic kidney disease with stage 1 through stage 4 chronic kidney disease, or unspecified chronic kidney disease; D50.0 Iron deficiency anemia secondary to blood loss (chronic); Z79.899 Other long term (current) drug therapy; Z88.0 Allergy status to penicillin; Z88.8 Allergy status to other drugs, medicaments and biological substances
CPT/HCPCS: 36415; 85027; 86850; 86900; 86901; 94640; C1776; J0131; J1170; J1885; J1956; J2001; J2250; J2270; J2405; J2704; J2795; J3010; J3370; J3490; J7050

== ENCOUNTER 2019-05-03 08:55 | Outpatient (CLI) | payer MEDICARE ==
[2019-05-03 10:10] LABS: #Basophils 0.1 thou/uL (0.0-0.2); #Eosinphils 0.6 thou/uL (0.0-0.7); #Lymphocytes 2.3 thou/uL (1.20-3.40); #Monocytes 1.1 thou/uL (0.11-0.59); #Neutrophils 5.4 thou/uL (1.40-6.50); %Basophils 0.6 % (0.0-1.0); %Eosinophils 6.7 % (0.0-10.0); %Lymphocytes 24.3 % (21.0-51.0); %Monocytes 11.7 % (0.0-10.0); %Neutrophils 56.7 % (42.0-75.0); Hemoglobin 12.6 g/dL (12.0-16.0); Mean Corpuscular HGB CONC 34.9 g/dL (32.0-36.0); Mean Corpuscular Hemoglobin 31.3 pg (27.0-31.0); Mean Corpuscular Volume 89.4 fL (78.0-98.0); Mean Platelet Volume 7.2 fL (7.4-10.4); Platelet Count 253 thou/uL (130-400); RBC Distribution Width 13.2 % (11.5-14.5); Red Blood Cell (RBC) Count 4.03 mill/uL (4.20-5.40); White Blood Cell (WBC) Count 9.6 thou/uL (4.8-10.8)
[2019-05-03 10:14] LABS: Bacteria/HPF None Seen HPF (None Seen); Bilirubin Negative (Negative); Blood, Urine Negative (Negative); Clarity Clear (Clear); Glucose, Urine (Dipstick) Normal (Negative); Leukocyte Negative Leu/uL (Negative); Nitrite Negative (Negative); Protein, Urine (Dipstick) Negative (Neg-Trace); RBC/HPF 0-3 HPF (0-3); Squamous Epithelial 0-3 HPF (0-3); Urobilinogen Normal mg/dL (Less than 2); WBC/HPF 0-3 HPF (0-3)
[2019-05-03 10:32] LABS: INR-International Normal Ratio 0.9; Prothrombin Time 12.3 SEC (12.0-14.7)
[2019-05-03 10:51] LABS: Anion Gap 16 mmol/L (10-20); BUN (Urea Nitrogen) 17 mg/dL (9.8-20.1); Calc. Creatinine Clearance 0 mL/min (70-130); Calcium 9.9 mg/dL (7.8-10.44); Carbon Dioxide 22 mmol/L (23-31); Chloride 105 mmol/L (98-107); Estimated GFR-MDRD 69; Glucose 111 mg/dL (83-110); Potassium 4.5 mmol/L (3.5-5.1); Sodium 138 mmol/L (136-145)
== END 2019-05-03 08:56 | disposition home or self-care (01) ==
LOC: LABBT 08:55
PROVIDERS: ATTEND Orthopaedic Surgery
DX: Z01.818 Encounter for other preprocedural examination (principal); M16.11 Unilateral primary osteoarthritis, right hip
CPT/HCPCS: 80048; 81001; 85025; 85610; 87081; 87086; 93005; 93010

== ENCOUNTER 2019-06-08 12:35 | Outpatient (CLI) | payer MEDICARE ==
--- NOTE | 2019-06-08 14:11 | MRI ---
MRI LEFT WRIST WITHOUT CONTRAST: INDICATION: 73-year-old female with history of left wrist pain with left small finger stiffness and n umbness since last year. COMPARISON: MR of the left wrist dated 02/17/[address] [facility]. TECHNIQUE: Multiplanar multisequence MR images were obtained of the left wrist without IV contrast. FINDINGS: There is prominent magnetic susceptibility artifact from instrumentation involving the wrist carpus p resumably from a wrist fusion that heavily distorts visualization of the regional anatomy and spatial resolution. Visualized aspects of the flexor tendons within the carpal tunnel as well as the FCR and FCU tendons appear within normal limits. The ulnar neural vasculature appears within normal limits. The visualized first and second dorsal compartments appear within normal limits. Visualized a spects of the intrinsic hand musculature appears within normal limits. IMPRESSION: Technically limited examination due to prominent magnetic susceptibility artifact from instrumentatio n. Transcribed Date/Time: 06/08/2019 2:42 PM
== END 2019-06-08 12:36 | disposition home or self-care (01) ==
LOC: TBSIIMAG 12:35
PROVIDERS: ATTEND Orthopaedic Surgery Hand Surgery
DX: M25.531 Pain in right wrist (principal)

== ENCOUNTER 2019-09-18 10:45 | Day surgery (SDC) | payer MEDICARE ==
[2019-09-17 09:21] VITALS: BMI 34.7
[~2019-09-18 10:45] MED LIST: PROPOFOL 200 MG/20 ML VIAL ONE
[2019-09-18 11:51] LABS: Anion Gap 14 mmol/L (10-20); BUN (Urea Nitrogen) 16 mg/dL (9.8-20.1); Calc. Creatinine Clearance 84 mL/min (70-130); Calcium 9.7 mg/dL (7.8-10.44); Carbon Dioxide 23 mmol/L (23-31); Chloride 106 mmol/L (98-107); Estimated GFR-MDRD 69; Glucose 90 mg/dL (83-110); Potassium 4.3 mmol/L (3.5-5.1); Sodium 139 mmol/L (136-145)
[2019-09-18] MEDS ORDERED: Propofol 500 MG/50 ML VIAL ONE (12:05)
[2019-09-18] MEDS ORDERED: Bupivacaine PF 0.5% 30 ML VIAL ONE (12:08)
[2019-09-18] MEDS ORDERED: Fentanyl 100 MCG/2 ML VIAL ONE (12:35)
[2019-09-18] MEDS ORDERED: EPINEPHrine 1 MG/ML AMP ONE (12:54)
[2019-09-18] MEDS ORDERED: Labetalol HCl 100 MG/20 ML VIAL ONE (14:47)
--- NOTE | 2019-09-18 15:47 | RAD ---
Thoracic spine one view intraoperative fluoroscopy HISTORY: Back pain. Stimulator placement. FINDINGS: Intraoperative fluoroscopy was provided for dorsal column stimulator placement as performed by Dr. Mills.. Spot fluoroscopic image shows 2 metallic leads overlying the central spinal canal. Superior margins are at the upper to midthoracic spine, labeled the T4 level.
--- NOTE | 2019-09-18 21:00 | OP ---
DATE OF PROCEDURE: 09/18/2019 PREOPERATIVE DIAGNOSES: 1. Post-laminectomy syndrome. 2. Chronic pain syndrome. 3. Thoracic radiculopathy. POSTOPERATIVE DIAGNOSES: 1. Post-laminectomy syndrome. 2. Chronic pain syndrome. 3. Thoracic radiculopathy. PROCEDURES PERFORMED: 1. Spinal cord stimulator generator implant x1. 2. Spinal cord stimulator lead implant x2. ESTIMATED BLOOD LOSS: 5 mL. DESCRIPTION OF PROCEDURE: The patient was taken to the procedure room and placed prone on the procedure room table. A time-out was performed. We prepped the back with DuraPrep and sterile drapes were applied. Using the fluoroscopy, we located the interspace of T7-8. We anesthetized the skin with Marcaine 0.5% with epinephrine and made an incision with a 10 blade scalpel, a vertical incision and blunt dissected this down to fascia. We then inserted a 14-gauge Rx Coude needle in a paramedian technique to the interspinous ligament. We used loss of resistance to air to achieve access to the epidural space. Aspiration was negative for heme or CSF. We threaded an 8-contact [facility]. Lawson lead up the midline dorsal epidural space to the top of T4. We performed the exact same technique on the contralateral side to place parallel leads at the top of T4. Stimulation was performed with the patient awake. She noted paresthesia in all pain areas. We then removed the needle taking care not to move the leads. We placed anchors over this and clicked the anchor, so that it would be attached to the lead. We secured this to fascia. Both anchors to fascia using 2-0 silk suture x2. A pocket was then made by anesthetizing the upper buttock with 0.5% Marcaine with epinephrine in a horizontal fashion. A scalpel was used to make an incision and this was blunt dissected to the Chai's fascia. We then blunt dissected this inferior and superiorly to create a pocket. A tunneling device was used to make a connection between the 2 pockets. The leads were brought through this tunneling device to the battery pocket. The leads were attached to the battery and torqued down to fixate them. Impedances were checked, which were all good. The battery was flipped into the pocket. All fascial layers were closed with simple interrupted suture 2-0 Vicryl in multiple layers. A 3-0 Rapide was used for subcuticular stitch, and Dermabond was used as an occlusive dressing on this. Once dried, a sterile 4x4 with Medipore tape was placed over both incisions. The patient was taken to the Day Stay under stable condition without any apparent complications noted at this time. Job ID: [id number]
== END 2019-09-18 16:05 | disposition home or self-care (01) ==
LOC: SDC 10:45
PROVIDERS: ATTEND Specialist
PROC: 0JH70MZ Insertion of Stimulator Generator into Back Subcutaneous Tissue and Fascia, Open Approach (ICD-10-PCS; principal; 2019-09-18)
PROC: 00HU3MZ Insertion of Neurostimulator Lead into Spinal Canal, Percutaneous Approach (ICD-10-PCS; 2019-09-18)
DX: M96.1 Postlaminectomy syndrome, not elsewhere classified (principal); M54.14 Radiculopathy, thoracic region; G89.4 Chronic pain syndrome; Z79.51 Long term (current) use of inhaled steroids; Z79.899 Other long term (current) drug therapy; Z88.5 Allergy status to narcotic agent; Z88.8 Allergy status to other drugs, medicaments and biological substances; Z91.041 Radiographic dye allergy status; Z91.048 Other nonmedicinal substance allergy status
CPT/HCPCS: 63650 ×2; 63685; 72020; 76000; 80048; C1767; C1778; 36415; J0171; J0690; J2704; J3010; S0020

== ENCOUNTER 2019-10-08 09:57 | Outpatient (CLI) | payer MEDICARE ==
--- NOTE | 2019-10-08 13:28 | RAD ---
Arthrogram right shoulder HISTORY: Internal derangement. Impingement. FINDINGS: After explaining the procedure and answering all questions, the anterior aspect of the righ t shoulder was prepped and draped in usual sterile fashion. Sterile technique, buffered local anesthesia, fluoroscopic guidance, and an anterior approach were used to carefully advance the tip of a 22-gauge spinal needle to the joint capsule at the level of the humeral head. A total volume of 10 cc containing normal saline, 1% lidocaine, iodinated contrast, and small amounts of gadolinium and epinephrine were then instilled into the joint capsule under spot fluoroscopic control. Needle was removed. Patient tolerated the procedure well and was transferred to CT in good c ondition for further imaging. IMPRESSION: Technically successful right shoulder arthrogram. CT is pending.
--- NOTE | 2019-10-08 14:27 | CT ---
CT ARTHROGRAM RIGHT SHOULDER: DATE: 10/08/2019. PROVIDED CLINICAL HISTORY: Right shoulder pain. FINDINGS: There is subtle increased density present involving the undersurface and interstitial fibers of the a nterior distal supraspinatus tendon near the footplate suspicious for partial thickness undersurface tearing. There is no evidence for full thickness rotator cuff tear. The components of the rotator c uff demonstrate an otherwise normal CT arthrographic appearance. The intraarticular segment of the longhead biceps tendon appears intact. The glenoid labrum and james ohumeral articular cartilage demonstrate an unremarkable CT arthrographic appearance. There is no evidence for fracture or other acute osseous abnormality. Acromioclavicular joint osteoa rthrosis is demonstrated with associated mass effect upon the subjacent supraspinatus. Rotator cuff muscular volume appears preserved. There is no evidence for axillary lymph node enlargement. The visualized right lung field appears cl ear. IMPRESSION: 1. Findings suspicious for partial thickness undersurface tearing involving the anterior distal supr aspinatus tendon at the footplate. 2. Acromioclavicular joint osteoarthrosis. POS: TPC
[2019-10-09] MEDS ORDERED: Lidocaine 1% PF 10 ML AMP ONE (10:35)
[2019-10-09] MEDS ORDERED: EPINEPHrine 1 MG/ML AMP ONE (10:35)
[2019-10-09] MEDS ORDERED: Iopamidol 300 61% 50 ML VIAL FS ONE (10:35)
== END 2019-10-08 09:58 | disposition home or self-care (01) ==
LOC: RAD 09:57
PROVIDERS: ATTEND Orthopaedic Surgery
DX: M75.41 Impingement syndrome of right shoulder (principal); M19.011 Primary osteoarthritis, right shoulder
CPT/HCPCS: 23350

== ENCOUNTER 2020-07-16 10:59 | Outpatient (CLI) | payer MEDICARE ==
--- NOTE | 2020-07-16 11:48 | MMO ---
Bilateral MAMMO Bilat Screen [facility]. CLINICAL HISTORY: Patient is 75 years old and is seen for screening. The patient has the following family history of breast cancer: mother, at age 65. The patient has no personal history of cancer. VIEWS: The views performed were: bilateral craniocaudal with tomosynthesis and bilateral mediolateral oblique with tomosynthesis. FILMS COMPARED: The present examination has been compared to prior imaging studies performed at [facility] on 11/11/2017 and 11/21/2018, and at [facility] on 09/09/2016. This study has been interpreted with the assistance of computer-aided detection. MAMMOGRAM FINDINGS: There are scattered fibroglandular densities. There are stable benign appearing calcifications seen in both breasts. There are no suspicious masses, suspicious calcifications, or new areas of architectural distortion. IMPRESSION: THERE IS NO MAMMOGRAPHIC EVIDENCE OF MALIGNANCY. A ROUTINE FOLLOW-UP MAMMOGRAM IN 1 YEAR IS RECOMMENDED. THE RESULTS OF THIS EXAM WERE SENT TO THE PATIENT. ACR BI-RADS Category 2 - Benign finding MAMMOGRAPHY NOTE: 1. A negative mammogram report should not delay a biopsy if a dominant of clinically suspicious mass is present. 2. Approximately 10% to 15% of breast cancers are not detected by mammography. 3. Adenosis and dense breasts may obscure an underlying neoplasm. Reported by: SHAHEEN WHITE MD Electonically Signed: [id number]
== END 2020-07-16 11:00 | disposition home or self-care (01) ==
LOC: BICMAMMO 10:59
PROVIDERS: ATTEND Physician Assistant
DX: Z12.31 Encounter for screening mammogram for malignant neoplasm of breast (principal); Z80.3 Family history of malignant neoplasm of breast
CPT/HCPCS: 77063; 77067

== ENCOUNTER 2020-08-19 09:46 | Outpatient (CLI) | payer MEDICARE ==
--- NOTE | 2020-08-19 10:16 | CT ---
CT BRAIN NONCONTRAST: DATE: 08/19/2020 HISTORY: 75-year-old female with headache FINDINGS: There is no evidence of acute intra-axial or extra-axial hemorrhage. There is no midline shift or any other mass effect. There is no extra-axial fluid collection. There is no evidence of obstructive hydrocephalus. Calvarium is intact. There is a tiny old lacunar infarction in the head of the left ca udate nucleus. The bilateral tympanomastoid cavities are grossly clear. The frontal, ethmoid, and sphenoid sinuses, and the upper portions of the bilateral maxillary sinuses, are grossly clear. IMPRESSION: 1) No acute intracranial findings. 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
--- NOTE | 2020-08-19 11:54 | CT ---
CT CERVICAL SPINE WITHOUT CONTRAST: INDICATION: Neck pain. History of prior cervical spine surgery. FINDINGS: Postoperative changes are noted. Anterior plate and screws are seen transfixing C3, C4, and C5. Int erbody implants. Partial fusion at these levels. There is spondylosis throughout. Loss of disk spa ce at C5-6 and C6-7 with anterior spurring and posterior spondylosis at these levels. Findings are d escribed at each level. C1-2: There is mild panus with calcification of the panus posteriorly which effaces the anterior sub arachnoid space and does abut the cervicomedullary junction. C2-3: No significant disk bulge or spondylosis. No central canal or foraminal stenosis. Screws at C3 extend to the posterior cortex. There is spondylosis at C3-4 effacing the anterior subarachnoid s pace. Mild left foraminal narrowing due to facet and uncinate hypertrophy. C3-4: Screws at C4 extend to the posterior cortex. Mild spondylosis at C4-5. Severe left foraminal stenosis at C4-5 due to facet and uncinate hypertrophy. C5-6: Screws at C5 extend to the posterior cortex. Prominent spondylosis at C5-6 abut the anterior cord. Bilateral foraminal stenosis due to facet and uncinate hypertrophy. C6-7: Mild posterior spondylosis. Mild bilateral foraminal stenosis due to hypertrophic change. Calcification of the ligamentum flavum posteriorly at C6 more prominent on the left. IMPRESSION: Postoperative and degenerative changes of the cervical spine with findings at each level described. POS: [facility]
== END 2020-08-19 09:47 | disposition home or self-care (01) ==
LOC: TBSIIMAG 09:46
PROVIDERS: ATTEND Neurological Surgery
DX: M54.2 Cervicalgia (principal); R51.9 Headache, unspecified; M47.812 Spondylosis without myelopathy or radiculopathy, cervical region; I25.2 Old myocardial infarction; Z98.1 Arthrodesis status
CPT/HCPCS: 70450; 72125

== ENCOUNTER 2021-05-04 10:56 | Emergency (ER) | payer MEDICARE ==
[2021-05-04 12:13] LABS: #Eosinphils 0.2 thou/uL (0.0-0.7); #Monocytes 0.7 thou/uL (0.11-0.59); #Neutrophils 4.1 thou/uL (1.40-6.50); %Basophils 0.7 % (0.0-1.0); %Eosinophils 2.9 % (0.0-10.0); %Lymphocytes 28.5 % (21.0-51.0); %Monocytes 9.3 % (0.0-10.0); %Neutrophils 58.6 % (42.0-75.0); Hemoglobin 12.6 g/dL (12.0-16.0); Mean Corpuscular HGB CONC 34.2 g/dL (32.0-36.0); Mean Corpuscular Hemoglobin 28.9 pg (27.0-31.0); Mean Corpuscular Volume 84.5 fL (78.0-98.0); Mean Platelet Volume 7.5 fL (7.4-10.4); Platelet Count 219 thou/uL (130-400); RBC Distribution Width 14.5 % (11.5-14.5); Red Blood Cell (RBC) Count 4.36 mill/uL (4.20-5.40)
[2021-05-04 12:37] LABS: Anion Gap 15 mmol/L (10-20); BUN (Urea Nitrogen) 16 mg/dL (9.8-20.1); Bilirubin, Total 0.5 mg/dL (0.2-1.2); Calc. Creatinine Clearance 0 mL/min (70-130); Calcium 9.9 mg/dL (7.8-10.44); Carbon Dioxide 23 mmol/L (23-31); Chloride 106 mmol/L (98-107); Glucose 88 mg/dL (83-110); Potassium 4.4 mmol/L (3.5-5.1); Sodium 140 mmol/L (136-145)
[2021-05-04 12:38] LABS: ALT (SGPT) 18 U/L (8-55); AST (SGOT) 19 U/L (5-34); Albumin 4.2 g/dL (3.4-4.8); Alkaline Phosphatase 66 U/L (40-110); Globulin 2.4 g/dL (2.4-3.5); Protein, Total 6.6 g/dL (5.8-8.1)
[2021-05-04 15:36] LABS: Troponin I Less than 0.010 ng/mL (< 0.028)
== END 2021-05-04 16:33 | disposition home or self-care (01) ==
LOC: ERS 10:56
DX: R06.00 Dyspnea, unspecified (principal); R07.9 Chest pain, unspecified; I10 Essential (primary) hypertension; E78.5 Hyperlipidemia, unspecified; K21.9 Gastro-esophageal reflux disease without esophagitis; Z79.899 Other long term (current) drug therapy
CPT/HCPCS: 36415; 71045; 80053; 83880; 84484; 85025; 93005

== ENCOUNTER 2021-09-07 07:01 | Day surgery (SDC) | payer MEDICARE ==
[2021-09-07 07:30] VITALS: TEMP 98.1; BMI 34.2
[2021-09-07 09:58] VITALS: BP 159/61
== END 2021-09-07 09:50 | disposition home or self-care (01) ==
LOC: RAD 07:01
PROVIDERS: ATTEND Neurological Surgery
PROC: B02B1ZZ Computerized Tomography (CT Scan) of Spinal Cord using Low Osmolar Contrast (ICD-10-PCS; principal; 2021-09-07)
DX: M47.26 Other spondylosis with radiculopathy, lumbar region (principal); M48.061 Spinal stenosis, lumbar region without neurogenic claudication; M51.16 Intervertebral disc disorders with radiculopathy, lumbar region; M51.24 Other intervertebral disc displacement, thoracic region; M43.16 Spondylolisthesis, lumbar region; M47.817 Spondylosis without myelopathy or radiculopathy, lumbosacral region; M43.17 Spondylolisthesis, lumbosacral region; M48.07 Spinal stenosis, lumbosacral region; I10 Essential (primary) hypertension; K21.9 Gastro-esophageal reflux disease without esophagitis; G47.00 Insomnia, unspecified; J45.909 Unspecified asthma, uncomplicated; I25.2 Old myocardial infarction; N32.81 Overactive bladder; E78.1 Pure hyperglyceridemia; E55.9 Vitamin D deficiency, unspecified; L57.0 Actinic keratosis; Z79.02 Long term (current) use of antithrombotics/antiplatelets; Z79.82 Long term (current) use of aspirin; Z79.899 Other long term (current) drug therapy; Z88.5 Allergy status to narcotic agent; Z88.8 Allergy status to other drugs, medicaments and biological substances; Z91.048 Other nonmedicinal substance allergy status; Z95.5 Presence of coronary angioplasty implant and graft
CPT/HCPCS: 62304; 72132

== ENCOUNTER 2021-10-06 10:42 | Outpatient (CLI) | payer MEDICARE ==
[2021-10-06 11:36] LABS: Hemoglobin 12.7 g/dL (12.0-15.5); Mean Corpuscular HGB CONC 32.1 g/dL (32.0-36.0); Mean Corpuscular Hemoglobin 27.9 pg (27.0-33.0); Mean Corpuscular Volume 86.8 fl (81.6-98.3); Mean Platelet Volume 9.5 fl (7.4-10.4); Platelet Count 231 10x3/uL (150-450); RBC Distribution Width 14.5 % (11.5-14.5); Red Blood Cell (RBC) Count 4.56 10x6/uL (3.90-5.03); White Blood Cell (WBC) Count 6.5 10x3/uL (3.5-10.5)
[2021-10-06 11:52] LABS: Anion Gap 15 mmol/L (10-20); BUN (Urea Nitrogen) 18 mg/dL (9.8-20.1); Calc. Creatinine Clearance 0 mL/min (70-130); Calcium 9.7 mg/dL (7.8-10.44); Carbon Dioxide 23 mmol/L (23-31); Chloride 108 mmol/L (98-107); Glucose 117 mg/dL (83-110); Potassium 4.5 mmol/L (3.5-5.1); Sodium 141 mmol/L (136-145)
[2021-10-07 12:47] LABS: SARS-CoV-2 PCR by NAA Not Detected (NotDetected)
== END 2021-10-06 10:43 | disposition home or self-care (01) ==
LOC: LABBT 10:42
PROVIDERS: ATTEND Neurological Surgery
DX: Z01.818 Encounter for other preprocedural examination (principal); Z20.822 Contact with and (suspected) exposure to COVID-19
CPT/HCPCS: 80048; 85027; 93005; U0003; U0005; 93010

== ENCOUNTER 2021-10-09 06:51 | Day surgery (SDC) | payer MEDICARE ==
[2021-10-06 10:12] VITALS: BMI 34.7
[2021-10-09] MEDS ORDERED: Bupivacaine PF 0.5% 30 ML VIAL ONE (08:49)
[2021-10-09] MEDS ORDERED: Fentanyl 100 MCG/2 ML VIAL ONE ×2 (08:51→12:54)
[2021-10-09] MEDS ORDERED: HYDROmorphone 0.5 MG/0.5 ML SYRINGE ONE (08:51)
[2021-10-09] MEDS ORDERED: ceFAZolin 2 GM/Dextrose 50 ML IVPB ONE ×2 (09:00→14:22)
[2021-10-09] MEDS ORDERED: Glycopyrrolate 0.2 MG/ML 5 ML SYRINGE ONE (09:14)
[2021-10-09] MEDS ORDERED: Dexamethasone 20 MG/5 ML VIAL ONE (09:14)
[2021-10-09] MEDS ORDERED: Rocuronium Bromide 10 MG/ML (10ML VIAL) ONE (09:14)
[2021-10-09] MEDS ORDERED: Metoprolol Tartrate 5 MG/5 ML VIAL ONE (09:14)
[2021-10-09] MEDS ORDERED: Ondansetron PF 4 MG/2 ML Vial ONE (09:14)
[2021-10-09] MEDS ORDERED: PROPOFOL 200 MG/20 ML VIAL ONE (09:14)
[2021-10-09] MEDS ORDERED: ePHEDrine 50 MG/ML VIAL ONE (09:14)
[2021-10-09] MEDS ORDERED: Lidocaine 1% PF 5 ML VIAL ONE (09:14)
[2021-10-09] MEDS ORDERED: PHENYLEPHRINE-NS 100 MCG/ML 10 ML SYRINGE ONE (09:14)
[2021-10-09] MEDS ORDERED: HYDROmorphone 2 MG/ML VIAL ONE (12:11)
== END 2021-10-09 15:33 | disposition home or self-care (01) ==
LOC: SDC 06:51
PROVIDERS: ATTEND Neurological Surgery
PROC: 0SG0071 Fusion of Lumbar Vertebral Joint with Autologous Tissue Substitute, Posterior Approach, Posterior Column, Open Approach (ICD-10-PCS; principal; 2021-10-09)
PROC: 0SG3071 Fusion of Lumbosacral Joint with Autologous Tissue Substitute, Posterior Approach, Posterior Column, Open Approach (ICD-10-PCS; 2021-10-09)
DX: M47.26 Other spondylosis with radiculopathy, lumbar region (principal); M48.061 Spinal stenosis, lumbar region without neurogenic claudication; M47.817 Spondylosis without myelopathy or radiculopathy, lumbosacral region; M43.17 Spondylolisthesis, lumbosacral region; I10 Essential (primary) hypertension; I25.10 Atherosclerotic heart disease of native coronary artery without angina pectoris; K21.9 Gastro-esophageal reflux disease without esophagitis; E78.5 Hyperlipidemia, unspecified; Z79.02 Long term (current) use of antithrombotics/antiplatelets; Z79.82 Long term (current) use of aspirin; Z79.899 Other long term (current) drug therapy; Z88.5 Allergy status to narcotic agent; Z88.8 Allergy status to other drugs, medicaments and biological substances; Z91.048 Other nonmedicinal substance allergy status; Z95.5 Presence of coronary angioplasty implant and graft; Z98.1 Arthrodesis status
CPT/HCPCS: 20930; 20936; 22612; 22614; 22842; 76000; C1713 ×2; C1768; J0690; J1100; J1170; J2405; J2704; J3010; J3490; S0020

== ENCOUNTER 2021-10-26 11:38 | Outpatient (CLI) | payer MEDICARE | END 2021-10-26 11:39 | disposition home or self-care (01) | LOC: CT 11:38 | PROVIDERS: ATTEND Neurological Surgery | DX: M54.6 Pain in thoracic spine (principal); M47.814 Spondylosis without myelopathy or radiculopathy, thoracic region; M48.04 Spinal stenosis, thoracic region | CPT/HCPCS: 72128 ==

== ENCOUNTER 2021-11-03 16:43 | Emergency (ER) | payer MEDICARE ==
[~2021-11-03 16:43] MED LIST changes: +Iopamidol 370 76% 100 ML VIAL ONE; -PROPOFOL 200 MG/20 ML VIAL ONE
[2021-11-03 17:42] LABS: #Basophils 0.1 thou/uL (0.0-0.2); #Eosinphils 0.1 thou/uL (0.0-0.7); #Lymphocytes 2.4 thou/uL (1.20-3.40); #Monocytes 0.8 thou/uL (0.11-0.59); #Neutrophils 3.1 thou/uL (1.40-6.50); %Basophils 1.6 % (0.0-1.0); %Eosinophils 2.1 % (0.0-10.0); %Lymphocytes 37.5 % (21.0-51.0); %Monocytes 11.8 % (0.0-10.0); Hemoglobin 11.2 g/dL (12.0-16.0); Mean Corpuscular HGB CONC 34.4 g/dL (32.0-36.0); Mean Corpuscular Hemoglobin 29.5 pg (27.0-31.0); Mean Corpuscular Volume 85.7 fL (78.0-98.0); Mean Platelet Volume 7.1 fL (7.4-10.4); Platelet Count 215 thou/uL (130-400); RBC Distribution Width 14.4 % (11.5-14.5); Red Blood Cell (RBC) Count 3.82 mill/uL (4.20-5.40); White Blood Cell (WBC) Count 6.5 thou/uL (4.8-10.8)
[2021-11-03 18:10] LABS: ALT (SGPT) 14 U/L (8-55); AST (SGOT) 15 U/L (5-34); Albumin 4.1 g/dL (3.4-4.8); Alkaline Phosphatase 124 U/L (40-110); Anion Gap 14 mmol/L (10-20); BUN (Urea Nitrogen) 17 mg/dL (9.8-20.1); Bilirubin, Total 0.2 mg/dL (0.2-1.2); Calc. Creatinine Clearance 0 mL/min (70-130); Calcium 9.8 mg/dL (7.8-10.44); Carbon Dioxide 23 mmol/L (23-31); Chloride 106 mmol/L (98-107); Globulin 2.7 g/dL (2.4-3.5); Glucose 152 mg/dL (83-110); Potassium 3.7 mmol/L (3.5-5.1); Protein, Total 6.8 g/dL (5.8-8.1); Sodium 139 mmol/L (136-145)
[2021-11-03] MEDS ORDERED: Amlodipine 5 MG TAB ONE ×2 (18:41→18:47)
== END 2021-11-03 19:22 | disposition home or self-care (01) ==
LOC: ERS 16:43
DX: R06.00 Dyspnea, unspecified (principal); I10 Essential (primary) hypertension; Z79.899 Other long term (current) drug therapy; E78.5 Hyperlipidemia, unspecified; K21.9 Gastro-esophageal reflux disease without esophagitis; M19.90 Unspecified osteoarthritis, unspecified site
CPT/HCPCS: 36415; 71045; 71275; 80053; 83880; 84484; 85025; 85379; 93005; Q9967

== ENCOUNTER 2021-11-06 09:00 | Outpatient (CLI) | payer MEDICARE ==
[2021-11-06 11:23] LABS: Hemoglobin 10.8 g/dL (12.0-15.5); Mean Corpuscular HGB CONC 32.2 g/dL (32.0-36.0); Mean Corpuscular Hemoglobin 27.6 pg (27.0-33.0); Mean Corpuscular Volume 85.7 fl (81.6-98.3); Mean Platelet Volume 9.7 fl (7.4-10.4); Platelet Count 217 10x3/uL (150-450); RBC Distribution Width 15.8 % (11.5-14.5); Red Blood Cell (RBC) Count 3.91 10x6/uL (3.90-5.03); White Blood Cell (WBC) Count 6.2 10x3/uL (3.5-10.5)
[2021-11-06 12:00] LABS: Anion Gap 15 mmol/L (10-20); BUN (Urea Nitrogen) 19 mg/dL (9.8-20.1); Calc. Creatinine Clearance 0 mL/min (70-130); Calcium 9.8 mg/dL (7.8-10.44); Carbon Dioxide 25 mmol/L (23-31); Chloride 108 mmol/L (98-107); Glucose 111 mg/dL (83-110); Potassium 4.2 mmol/L (3.5-5.1); Sodium 144 mmol/L (136-145)
[2021-11-06 17:37] LABS: SARS-CoV-2 PCR by NAA Not Detected (NotDetected)
== END 2021-11-06 09:01 | disposition home or self-care (01) ==
LOC: LABBT 09:00
PROVIDERS: ATTEND Neurological Surgery
DX: Z01.812 Encounter for preprocedural laboratory examination (principal); T85.192A Other mechanical complication of implanted electronic neurostimulator of spinal cord electrode (lead), initial encounter; Z20.822 Contact with and (suspected) exposure to COVID-19
CPT/HCPCS: 80048; 85027; U0003; U0005

== ENCOUNTER 2021-11-11 06:57 | Day surgery (SDC) | payer MEDICARE ==
[2021-11-06 12:24] VITALS: BMI 34.7
[2021-11-11] MEDS ORDERED: SUGAMMADEX SODIUM 200 MG/2 ML VIAL ONE (08:32)
[2021-11-11] MEDS ORDERED: Famotidine/PF 20 mg/2ml Vial ONE (08:32)
[2021-11-11] MEDS ORDERED: Fentanyl 250 MCG/5 ML VIAL ONE (08:32)
[2021-11-11] MEDS ORDERED: PROPOFOL 60 ML ONE (08:35)
[2021-11-11] MEDS ORDERED: ceFAZolin (BATCH) 2 GM/100 ML BAG ONE ×2 (08:37→10:52)
[2021-11-11] MEDS ORDERED: Ondansetron PF 4 MG/2 ML Vial ONE (08:49)
[2021-11-11] MEDS ORDERED: PROPOFOL 200 MG/20 ML VIAL ONE (08:49)
[2021-11-11] MEDS ORDERED: Metoclopramide HCl 10 MG/2 ML VIAL ONE (08:49)
[2021-11-11] MEDS ORDERED: Lidocaine 1% PF 5 ML VIAL ONE (08:49)
[2021-11-11] MEDS ORDERED: Midazolam HCl 2 mg/2 ml Vial ONE (09:20)
== END 2021-11-11 12:00 | disposition home or self-care (01) ==
LOC: SDC 06:57
PROVIDERS: ATTEND Neurological Surgery
PROC: 00PU3MZ Removal of Neurostimulator Lead from Spinal Canal, Percutaneous Approach (ICD-10-PCS; principal; 2021-11-11)
PROC: 0JPT0MZ Removal of Stimulator Generator from Trunk Subcutaneous Tissue and Fascia, Open Approach (ICD-10-PCS; 2021-11-11)
DX: T85.113A Breakdown (mechanical) of implanted electronic neurostimulator, generator, initial encounter (principal); G89.4 Chronic pain syndrome; I10 Essential (primary) hypertension; I25.10 Atherosclerotic heart disease of native coronary artery without angina pectoris; K21.9 Gastro-esophageal reflux disease without esophagitis; E78.5 Hyperlipidemia, unspecified; Z79.02 Long term (current) use of antithrombotics/antiplatelets; Z79.899 Other long term (current) drug therapy; Z88.0 Allergy status to penicillin; Z88.5 Allergy status to narcotic agent; Z88.8 Allergy status to other drugs, medicaments and biological substances; Z98.1 Arthrodesis status
CPT/HCPCS: 76000; J0690; J2250; J2405; J2704; J2765; J3010; S0028

== ENCOUNTER 2021-12-11 09:41 | Outpatient (CLI) | payer MEDICARE | END 2021-12-11 09:42 | disposition home or self-care (01) | PROVIDERS: ATTEND Internal Medicine | DX: J69.0 Pneumonitis due to inhalation of food and vomit (principal); R05.3 Chronic cough | CPT/HCPCS: 74230 ==

== ENCOUNTER 2022-01-05 10:32 | Outpatient (CLI) | payer MEDICARE | END 2022-01-05 10:33 | disposition home or self-care (01) | LOC: RAD 10:32 | PROVIDERS: ATTEND Internal Medicine Critical Care Medicine | DX: R06.00 Dyspnea, unspecified (principal) | CPT/HCPCS: 71046 ==

== ENCOUNTER 2022-01-05 12:28 | Outpatient (CLI) | payer MEDICARE | END 2022-01-05 12:29 | disposition home or self-care (01) | LOC: BICCT 12:28 | PROVIDERS: ATTEND Neurological Surgery | DX: M47.26 Other spondylosis with radiculopathy, lumbar region (principal); Z98.890 Other specified postprocedural states | CPT/HCPCS: 71046; 72131 ==

== ENCOUNTER 2022-01-21 09:25 | Outpatient (CLI) | payer MEDICARE | END 2022-01-21 09:26 | disposition home or self-care (01) | LOC: TBSIIMAG 09:25 | PROVIDERS: ATTEND Neurological Surgery | DX: M54.50 Low back pain, unspecified (principal); M47.814 Spondylosis without myelopathy or radiculopathy, thoracic region; M47.815 Spondylosis without myelopathy or radiculopathy, thoracolumbar region; M47.816 Spondylosis without myelopathy or radiculopathy, lumbar region; Z98.890 Other specified postprocedural states | CPT/HCPCS: 72158 ==

== ENCOUNTER → 2022-03-18 | Day surgery (SDC) | payer MEDICARE | LOC: SDC 07:30 | PROVIDERS: ATTEND Internal Medicine | PROC: 4A0B8BZ Measurement of Gastrointestinal Pressure, Via Natural or Artificial Opening Endoscopic (ICD-10-PCS; principal; 2022-03-18) | DX: K21.9 Gastro-esophageal reflux disease without esophagitis (principal); I10 Essential (primary) hypertension; E78.00 Pure hypercholesterolemia, unspecified; Z79.02 Long term (current) use of antithrombotics/antiplatelets; Z79.82 Long term (current) use of aspirin; Z79.899 Other long term (current) drug therapy; Z88.5 Allergy status to narcotic agent; Z88.8 Allergy status to other drugs, medicaments and biological substances; Z91.040 Latex allergy status; Z91.048 Other nonmedicinal substance allergy status | CPT/HCPCS: 91010 ==

== ENCOUNTER 2022-03-19 10:04 | Outpatient (CLI) | payer MEDICARE | END 2022-03-19 10:05 | disposition home or self-care (01) | LOC: NM 10:04 | PROVIDERS: ATTEND Physician Assistant | DX: R06.02 Shortness of breath (principal); R07.89 Other chest pain; R79.1 Abnormal coagulation profile | CPT/HCPCS: 71046; 78451; A9540 ==

== ENCOUNTER 2022-06-23 08:22 | Outpatient (CLI) | payer MEDICARE ==
[2022-06-23] MEDS ORDERED: Magnevist 469MG/ML 20 ML VIAL ONE (14:42)
== END 2022-06-23 08:23 | disposition home or self-care (01) ==
LOC: TBSIIMAG 08:22
PROVIDERS: ATTEND Specialist
DX: M47.24 Other spondylosis with radiculopathy, thoracic region (principal); M89.9 Disorder of bone, unspecified; M48.04 Spinal stenosis, thoracic region; M51.34 Other intervertebral disc degeneration, thoracic region; M25.78 Osteophyte, vertebrae; M24.28 Disorder of ligament, vertebrae; M51.35 Other intervertebral disc degeneration, thoracolumbar region; M48.05 Spinal stenosis, thoracolumbar region; Z98.1 Arthrodesis status
CPT/HCPCS: 72157; 82565; A9579

== ENCOUNTER 2022-06-29 10:21 | Outpatient (CLI) | payer MEDICARE | END 2022-06-29 10:22 | disposition home or self-care (01) | LOC: TBSIIMAG 10:21 | PROVIDERS: ATTEND Specialist | DX: M51.16 Intervertebral disc disorders with radiculopathy, lumbar region (principal); Z98.890 Other specified postprocedural states | CPT/HCPCS: 72148 ==

== ENCOUNTER 2022-08-11 06:26 | Day surgery (SDC) | payer MEDICARE ==
[2022-08-10 16:00] VITALS: BMI 32.9
[2022-08-11 08:18] LABS: SARS-CoV-2 NAA Rapid Test Not Detected (NotDetected)
[2022-08-11] MEDS ORDERED: Bupivacaine HCl 0.5%/Epinephrine 1:200,000/PF 30 ml Vial ONE (08:35)
[2022-08-11] MEDS ORDERED: fentaNYL PF 100 MCG/2 ML SYRINGE ONE ×2 (09:11→10:18)
[2022-08-11] MEDS ORDERED: CEFAZOLIN 2 GM VIAL ONE ×2 (09:20→13:40)
[2022-08-11] MEDS ORDERED: Sodium Chloride 0.9% 100 ML ONE ×2 (09:20→13:40)
[2022-08-11] MEDS ORDERED: Ketamine 50 MG/ML (10ML VIAL) ONE (09:26)
[2022-08-11] MEDS ORDERED: PROPOFOL 200 MG/20 ML VIAL ONE (09:38)
[2022-08-11] MEDS ORDERED: Dexamethasone 20 MG/5 ML VIAL ONE (09:38)
[2022-08-11] MEDS ORDERED: Glycopyrrolate 0.2 MG/ML 5 ML SYRINGE ONE (09:38)
[2022-08-11] MEDS ORDERED: NEOSTIGMINE 3 MG/3 ML SYR 3 MG/3 ML SYRINGE ONE (09:38)
[2022-08-11] MEDS ORDERED: Ondansetron PF 4 MG/2 ML Vial ONE (09:38)
[2022-08-11] MEDS ORDERED: Rocuronium Bromide 10 MG/ML (10ML VIAL) ONE (09:38)
[2022-08-11] MEDS ORDERED: SUGAMMADEX SODIUM 200 MG/2 ML VIAL ONE (10:58)
[2022-08-11] MEDS ORDERED: FENTANYL 50 MCG/ML 1 ML VIAL ONE (11:36)
[2022-08-11] MEDS ORDERED: HYDROmorphone 0.5 MG/0.5 ML SYRINGE ONE ×2 (11:47→12:00)
== END 2022-08-11 14:25 | disposition home or self-care (01) ==
LOC: SDC 06:26
PROVIDERS: ATTEND Neurological Surgery
PROC: 01N80ZZ Release Thoracic Nerve, Open Approach (ICD-10-PCS; principal; 2022-08-11)
PROC: 01NB0ZZ Release Lumbar Nerve, Open Approach (ICD-10-PCS; 2022-08-11)
DX: M51.16 Intervertebral disc disorders with radiculopathy, lumbar region (principal); M48.04 Spinal stenosis, thoracic region; Z79.82 Long term (current) use of aspirin; Z79.899 Other long term (current) drug therapy; Z88.5 Allergy status to narcotic agent; Z88.8 Allergy status to other drugs, medicaments and biological substances; Z91.048 Other nonmedicinal substance allergy status; Z20.822 Contact with and (suspected) exposure to COVID-19
CPT/HCPCS: 63030; 64999; C1713; J3010; U0002; J1100; J1170; J2405; J2704; J3490

== ENCOUNTER 2022-09-03 06:31 | Day surgery (SDC) | payer MEDICARE ==
[2022-09-02 08:53] VITALS: BMI 33.8
[2022-09-03] MEDS ORDERED: Bupivacaine HCl 0.5%/Epinephrine 1:200,000/PF 30 ml Vial ONE (08:48)
[2022-09-03] MEDS ORDERED: Fentanyl 250 MCG/5 ML VIAL ONE (08:52)
[2022-09-03] MEDS ORDERED: PROPOFOL 40 ML ONE (08:52)
[2022-09-03] MEDS ORDERED: Sodium Chloride 0.9% 100 ML ONE (08:56)
[2022-09-03] MEDS ORDERED: CEFAZOLIN 2 GM VIAL ONE (08:56)
[2022-09-03] MEDS ORDERED: Lidocaine 1% PF 5 ML VIAL ONE (09:10)
== END 2022-09-03 10:30 | disposition home or self-care (01) ==
LOC: SDC 06:31
PROVIDERS: ATTEND Neurological Surgery
PROC: 01N50ZZ Release Median Nerve, Open Approach (ICD-10-PCS; principal; 2022-09-03)
DX: G56.02 Carpal tunnel syndrome, left upper limb (principal); I25.2 Old myocardial infarction; I10 Essential (primary) hypertension; G47.33 Obstructive sleep apnea (adult) (pediatric); E78.2 Mixed hyperlipidemia; I49.3 Ventricular premature depolarization; I25.10 Atherosclerotic heart disease of native coronary artery without angina pectoris; E66.3 Overweight; Z68.33 Body mass index [BMI] 33.0-33.9, adult; Z79.82 Long term (current) use of aspirin; Z79.899 Other long term (current) drug therapy; Z88.5 Allergy status to narcotic agent; Z88.8 Allergy status to other drugs, medicaments and biological substances; Z91.048 Other nonmedicinal substance allergy status; Z98.1 Arthrodesis status
CPT/HCPCS: J2704; J3010; J3490

== ENCOUNTER 2022-11-08 14:47 | Outpatient (CLI) | payer MEDICARE | END 2022-11-08 14:48 | disposition home or self-care (01) | LOC: TBSIIMAG 14:47 | PROVIDERS: ATTEND Neurological Surgery | DX: M54.2 Cervicalgia (principal); R20.0 Anesthesia of skin; M47.812 Spondylosis without myelopathy or radiculopathy, cervical region; M89.38 Hypertrophy of bone, other site; Z98.1 Arthrodesis status | CPT/HCPCS: 72141 ==

== ENCOUNTER 2022-11-16 11:13 | Outpatient (CLI) | payer MEDICARE, OTHER | END 2022-11-16 11:14 | disposition home or self-care (01) | LOC: TBSIIMAG 11:13 | PROVIDERS: ATTEND Neurological Surgery | DX: M54.2 Cervicalgia (principal); M47.812 Spondylosis without myelopathy or radiculopathy, cervical region; Z98.890 Other specified postprocedural states | CPT/HCPCS: 72040 ==

== ENCOUNTER 2024-03-28 05:39 | Day surgery (SDC) | payer MEDICARE ==
[2024-03-23 13:57] VITALS: BMI 31.2
[2024-03-28] MEDS ORDERED: EPINEPHrine 1 MG/ML VIAL ONE (06:10)
[2024-03-28] MEDS ORDERED: Thrombin 5000 UNITS/5 ML VIAL ONE (06:11)
[2024-03-28] MEDS ORDERED: Bupivacaine PF 0.5% 30 ML VIAL ONE (06:11)
[2024-03-28 06:29] LABS: #Basophils 0.03 10x3/uL (0.0-0.2); %Basophils 0.5 % (0.0-1.0); %Eosinophils 7.7 % (0.0-10.0); %Lymphocytes 39.2 % (21.0-51.0); %Monocytes 11.9 % (0.0-10.0); %Neutrophils 40.4 % (42.0-75.0); Hematocrit 37.8 % (36.0-47.0); Hemoglobin 13.2 g/dL (12.0-16.0); Mean Corpuscular HGB CONC 34.9 g/dL (32.0-36.0); Mean Corpuscular Hemoglobin 29.9 pg (27.0-31.0); Mean Corpuscular Volume 85.7 fL (78.0-98.0); Mean Platelet Volume 9.7 fL (7.4-10.4); Platelet Count 206 10x3/uL (130-400); RBC Distribution Width 13.7 % (11.5-14.5); Red Blood Cell (RBC) Count 4.41 mill/uL (4.20-5.40)
[2024-03-28] MEDS ORDERED: PROPOFOL 20 ML ONE (06:36)
[2024-03-28] MEDS ORDERED: fentaNYL 50 mcg/mL 1 mL Vial ONE ×3 (06:36→08:26)
[2024-03-28] MEDS ORDERED: Lidocaine 1% PF 5 ML VIAL ONE (06:37)
[2024-03-28] MEDS ORDERED: Rocuronium Bromide 10 MG/ML (10ML VIAL) ONE (06:37)
[2024-03-28 06:44] LABS: Anion Gap 14 mmol/L (10-20); BUN (Urea Nitrogen) 22 mg/dL (9.8-20.1); Calc. Creatinine Clearance 54 mL/min (70-130); Calcium 10.2 mg/dL (7.8-10.44); Carbon Dioxide 21 mmol/L (23-31); Chloride 107 mmol/L (98-107); Estimated GFR 53; Glucose 88 mg/dL (83-110); Sodium 138 mmol/L (136-145)
[2024-03-28] MEDS ORDERED: Vancomycin 1 GM/200 ML (FROZEN) BAG ONE (06:53)
[2024-03-28] MEDS ORDERED: Dexamethasone 4 mg/ml Vial ONE (07:56)
[2024-03-28] MEDS ORDERED: Ondansetron PF 4 MG/2 ML Vial ONE (07:56)
[2024-03-28] MEDS ORDERED: SUGAMMADEX SODIUM 200 MG/2 ML VIAL ONE ×2 (08:09→08:34)
[2024-03-28] MEDS ORDERED: Labetalol HCl 100 MG/20 ML VIAL ONE (08:11)
[2024-03-28] MEDS ORDERED: hydrALAZINE 20 MG/ML VIAL ONE (08:47)
[2024-03-28] MEDS ORDERED: HYDROmorphone 0.5 MG/0.5 ML SYRINGE ONE (08:55)
[2024-03-28] MEDS ORDERED: Fentanyl 250 MCG/5 ML VIAL ONE (08:55)
[2024-03-28] MEDS ORDERED: Cyclobenzaprine 10 MG TAB ONE (09:12)
[2024-03-28] MEDS ORDERED: traMADol HCl 50 MG TAB ONE (10:42)
== END 2024-03-28 12:00 | disposition home or self-care (01) ==
LOC: SDC 05:39
PROVIDERS: ATTEND Neurological Surgery
PROC: 01NB0ZZ Release Lumbar Nerve, Open Approach (ICD-10-PCS; principal; 2024-03-28)
DX: M48.062 Spinal stenosis, lumbar region with neurogenic claudication (principal); J45.909 Unspecified asthma, uncomplicated; K21.9 Gastro-esophageal reflux disease without esophagitis; I10 Essential (primary) hypertension; Z98.890 Other specified postprocedural states; Z98.41 Cataract extraction status, right eye; Z98.42 Cataract extraction status, left eye; Z90.49 Acquired absence of other specified parts of digestive tract; Z90.710 Acquired absence of both cervix and uterus; Z79.899 Other long term (current) drug therapy; Z88.0 Allergy status to penicillin; Z88.8 Allergy status to other drugs, medicaments and biological substances
CPT/HCPCS: 63042; 80048; 85025; 93005; C1713; J0171; J0360; J0665; J1100; J1170; J2405; J2704; J3010 ×2; J3370; 93010

== ENCOUNTER 2024-05-30 06:58 | Observation (INO) | payer MEDICARE ==
[2024-05-29 13:16] VITALS: BMI 31.6
[2024-05-30] MEDS ORDERED: fentaNYL 50 mcg/mL 1 mL Vial ONE ×4 (07:47→12:37)
[2024-05-30] MEDS ORDERED: Vancomycin 1 GM/200 ML (FROZEN) BAG ONE (08:26)
[2024-05-30] MEDS ORDERED: CEFAZOLIN 2 GM VIAL ONE (08:26)
[2024-05-30] MEDS ORDERED: Tranexamic Acid 1,000 MG/10 ML VIAL ONE (08:26)
[2024-05-30] MEDS ORDERED: Sodium Chloride 0.9% 200 ML ONE (08:26)
[2024-05-30 08:48] LABS: #Basophils 0.03 10x3/uL (0.0-0.2); %Basophils 0.5 % (0.0-1.0); %Eosinophils 3.3 % (0.0-10.0); %Lymphocytes 41.1 % (21.0-51.0); %Monocytes 11.7 % (0.0-10.0); %Neutrophils 43.2 % (42.0-75.0); Hematocrit 37.8 % (36.0-47.0); Hemoglobin 12.9 g/dL (12.0-16.0); Mean Corpuscular HGB CONC 34.1 g/dL (32.0-36.0); Mean Corpuscular Hemoglobin 31.6 pg (27.0-31.0); Mean Corpuscular Volume 92.6 fL (78.0-98.0); Mean Platelet Volume 10.6 fL (7.4-10.4); Platelet Count 177 10x3/uL (130-400); RBC Distribution Width 14.2 % (11.5-14.5); Red Blood Cell (RBC) Count 4.08 mill/uL (4.20-5.40)
[2024-05-30] MEDS ORDERED: Lidocaine 1% PF 5 ML VIAL ONE (09:45)
[2024-05-30] MEDS ORDERED: PROPOFOL 20 ML ONE (09:45)
[2024-05-30] MEDS ORDERED: fentaNYL PF 100 MCG/2 ML SYRINGE ONE ×2 (09:45→10:40)
[2024-05-30] MEDS ORDERED: Rocuronium Bromide 10 MG/ML (10ML VIAL) ONE (09:45)
[2024-05-30] MEDS ORDERED: Ondansetron PF 4 MG/2 ML Vial ONE (09:52)
[2024-05-30] MEDS ORDERED: Dexamethasone 20 MG/5 ML VIAL ONE (09:52)
[2024-05-30] MEDS ORDERED: HYDROmorphone/PF 10 MG in Sodium Chloride 0.9% 99 ML IV PRN (09:58)
[2024-05-30] MEDS ORDERED: diphenhydrAMINE 50 MG/ML VIAL IM PRN (09:58)
[2024-05-30] MEDS ORDERED: Ondansetron HCl/PF 4 MG/2 ML Vial IVP PRN (09:58)
[2024-05-30] MEDS ORDERED: diphenhydrAMINE 50 MG/ML VIAL IVP PRN (09:58)
[2024-05-30] MEDS ORDERED: Naloxone HCl 0.4 mg/ml Vial IV PRN (09:58)
[2024-05-30] MEDS ORDERED: HYDROmorphone 2 MG/ML VIAL SLOW IVP PRN (09:58)
[2024-05-30] MEDS ORDERED: diphenhydrAMINE 25 MG CAP PO PRN ×2 (09:58→11:48)
[2024-05-30] MEDS ORDERED: Ketorolac Tromethamine 30 MG/ML VIAL IVP PRN (09:58)
[2024-05-30] MEDS ORDERED: Ondansetron PF 4 MG/2 ML Vial IVP PRN ×2 (09:58→11:48)
[2024-05-30] MEDS ORDERED: Promethazine HCl 25 MG/ML VIAL IM PRN ×3 (09:58→11:48)
[2024-05-30] MEDS ORDERED: ACTIVE PCA FS PRN (10:00)
[2024-05-30 10:22] LABS: Anion Gap 16 mmol/L (10-20); BUN (Urea Nitrogen) 17 mg/dL (9.8-20.1); Calc. Creatinine Clearance 59 mL/min (70-130); Calcium 9.8 mg/dL (7.8-10.44); Carbon Dioxide 21 mmol/L (23-31); Chloride 106 mmol/L (98-107); Estimated GFR 58; Glucose 89 mg/dL (83-110); Potassium 4.4 mmol/L (3.5-5.1); Sodium 139 mmol/L (136-145)
[2024-05-30] MEDS ORDERED: ePHEDrine Sulfate 50 MG/10 ML VIAL ONE (10:24)
[2024-05-30] MEDS ORDERED: SUGAMMADEX SODIUM 200 MG/2 ML VIAL ONE (11:23)
[2024-05-30] MEDS ORDERED: Acetaminophen 325 MG TAB PO PRN (11:48)
[2024-05-30] MEDS ORDERED: Zolpidem Tartrate 5 MG TAB PO PRN (11:48)
[2024-05-30] MEDS ORDERED: HYDROmorphone 0.5 MG/0.5 ML SYRINGE ONE ×3 (12:11→12:37)
[2024-05-30] MEDS ORDERED: Ketorolac Tromethamine 30 MG (1 mL) VIAL ONE (12:37)
[2024-05-30] MEDS: Ketorolac Tromethamine 30 MG (1 mL) VIAL IVP SCH (14:35)
[2024-05-30] MEDS: Acetaminophen 500 MG TAB PO SCH (14:45)
[2024-05-30] MEDS: CEFAZOLIN 2 GM in Sodium Chloride 0.9% 100 ML IVPB SCH (16:26)
[2024-05-30] MEDS: Dextrose 5 %-0.45 % NaCl 1,000 ML IV SCH (18:26)
[2024-05-30] MEDS: Ferrous Gluconate 324 MG TAB PO SCH (21:40)
[2024-05-30] MEDS: Senokot S 8.6-50 MG TAB PO SCH (21:42)
[2024-05-30] MEDS: Bisacodyl 5 MG TAB PO SCH (21:42)
[2024-05-30] MEDS: Docusate 100 MG CAP PO SCH (21:42)
[2024-05-30] MEDS: DULoxetine 20 MG CAP PO SCH (21:43)
[2024-05-30] MEDS: Aspirin 81 mg Enteric Coated Tablet PO SCH (21:43)
[2024-05-30] MEDS: Montelukast Sodium 10 mg Tablet PO SCH (21:44)
[2024-05-30] MEDS: Atenolol 50 MG TAB PO SCH (21:44)
[2024-05-31 05:41] LABS: Hematocrit 30.1 % (36.0-47.0); Hemoglobin 10.5 g/dL (12.0-16.0); Mean Corpuscular HGB CONC 34.9 g/dL (32.0-36.0); Mean Corpuscular Hemoglobin 30.6 pg (27.0-31.0); Mean Corpuscular Volume 87.8 fL (78.0-98.0); Mean Platelet Volume 9.7 fL (7.4-10.4); Platelet Count 152 10x3/uL (130-400); RBC Distribution Width 13.8 % (11.5-14.5); Red Blood Cell (RBC) Count 3.43 mill/uL (4.20-5.40)
[2024-05-31 05:53] LABS: Anion Gap 14 mmol/L (10-20); BUN (Urea Nitrogen) 17 mg/dL (9.8-20.1); Calc. Creatinine Clearance 55 mL/min (70-130); Calcium 9.1 mg/dL (7.8-10.44); Carbon Dioxide 22 mmol/L (23-31); Chloride 102 mmol/L (98-107); Estimated GFR 54; Glucose 134 mg/dL (83-110); Potassium 4.2 mmol/L (3.5-5.1); Sodium 134 mmol/L (136-145)
[2024-05-31 07:50] VITALS: BP 127/63; TEMP 98.8
[2024-05-31] MEDS: Pantoprazole DR 40 MG TAB PO SCH (09:30)
[2024-05-31] MEDS: Multivitamin W/ Minerals 1 TAB PO SCH (09:30)
[2024-05-31] MEDS: Triamterene/Hydrochlorothiazide 37.5 mg/25 mg Tablet PO SCH (09:30)
[2024-05-31] MEDS: Calcium Carbonate 600 MG TAB PO SCH (09:30)
[2024-05-31] MEDS: traMADol HCl 50 MG TAB PO PRN (09:31)
[2024-05-31] MEDS: oxyCODONE 5 MG TAB PO PRN (11:31)
[2024-05-31] MEDS: PRAVASTATIN 40 MG TAB PO SCH (13:20)
== END 2024-05-31 12:50 | disposition home or self-care (01) ==
LOC: SDC 06:58 → SURG B 13:51
PROVIDERS: ADMIT Orthopaedic Surgery; ATTEND Orthopaedic Surgery
PROC: 0SRB0JZ Replacement of Left Hip Joint with Synthetic Substitute, Open Approach (ICD-10-PCS; principal; 2024-05-30)
DX: M16.12 Unilateral primary osteoarthritis, left hip (principal); I10 Essential (primary) hypertension; K21.9 Gastro-esophageal reflux disease without esophagitis; G47.00 Insomnia, unspecified; E78.00 Pure hypercholesterolemia, unspecified; J45.909 Unspecified asthma, uncomplicated; D50.9 Iron deficiency anemia, unspecified; I21.4 Non-ST elevation (NSTEMI) myocardial infarction; G90.9 Disorder of the autonomic nervous system, unspecified; Z90.710 Acquired absence of both cervix and uterus; Z98.890 Other specified postprocedural states; Z98.1 Arthrodesis status; Z88.5 Allergy status to narcotic agent; Z88.6 Allergy status to analgesic agent; Z79.899 Other long term (current) drug therapy
CPT/HCPCS: 27130; 72170; 73501; 80048 ×2; 85025; 85027; 93005; 97110 ×2; 97116 ×2; 97530; 97535; C1713; J1100; J1170; J1885 ×2; J2405; J2704; J3010; J3370; J7042; 36415; 93010